=== PATIENT | male | born 1950 | race Caucasian/White ===

== ENCOUNTER 2016-07-12 20:37 | Observation (INO) ==
[2016-07-12] MEDS ORDERED: Ondansetron ODT 4 MG TAB.RAPDIS SL ONE (21:02)
--- NOTE | 2016-07-12 22:00 | Emergency Department Note ---
Disposition Clinical Impression: Vertigo Disposition: Admitted As Inpatient Condition: Good Dizziness HPI - General Chief Complaint: ED Nausea/Vomiting/Diarrhea Stated Complaint: n/v Time Seen by Provider: 07/12/16 21:01 Source: patient, family Mode of arrival: private vehicle Limitations: no limitations Nursing Notes Reviewed: Yes Vital Signs Reviewed: Yes - History of Present Illness HPI Narrative: 65-year-old male presents to the ER with a chief complaint of dizziness. Patient reports that this morning he did have an episode where for roughly 5 minutes the room was spinning around him. He states he closed his eyes and went away. He reports prior to arrival that he had recurrence of his symptoms and that the room was spinning around for a couple of hours before going away. Patient denies any previous history of vertigo. No recent head trauma. Does report history of strokes in the past. He reports he was nauseated and did have a few episodes of vomiting prior to arrival. His symptoms went away before he got here. He denies any chest pain shortness of breath visual changes headaches. No other complaints. 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 Denies: ataxia, chest pain, fever, shortness of breath, vision changes - Related Data Home Medications Medication Instructions Recorded Confirmed Fluticasone Propionate Nasal 50 mcg NS DAILY 07/12/16 07/12/16 [Flonase] Levothyroxine [Synthroid] 125 mcg PO QAM 07/12/16 07/12/16 Lisinopril/Hydrochlorothiazide 1 each PO BID 07/12/16 07/12/16 [Zestoretic 10-12.5 mg Tablet] Previous Rx's Medication Instructions Recorded Atorvastatin [Lipitor] 40 mg PO HS #30 tablet 07/13/16 Allergies Allergy/AdvReac Type Severity Reaction Status Date / Time Penicillins Allergy Abdominal Verified 07/12/16 20:38 Pain All systems ED: reviewed and negative except as stated. Constitutional: Denies: fever Cardiovascular: Denies: chest pain Respiratory: Denies: cough, dyspnea Gastrointestinal: Reports: nausea, vomiting. Denies: abdominal pain Neurological: Reports: vertigo. Denies: headache, numbness, paresthesias Past Medical History - Past Medical History Attestation: Yes The following information was validated with the patient. Source: patient Medical history: Reports: CVA, hypertension, thyroid disease Surgical history: Reports: non-contributory Psychiatric history: Reports: no psych history - Social History Smoking Status: Never smoker Smokeless Tobacco Status: No Alcohol use: Reports: none Drug use: Reports: none Physical Exam - General Limitations: no limitations General appearance: alert, in no apparent distress - Head Head exam: atraumatic, normocephalic, normal inspection - Eye Eye exam: Present: normal appearance, PERRL, EOMI - ENT ENT exam: normal exam - Neck Neck exam: Present: normal inspection, full ROM - Chest Chest inspection: Present: normal inspection, symmetric chest wall rise - Respiratory Respiratory exam: Present: normal lung sounds bilaterally - Cardiovascular Cardiovascular exam: Present: normal rhythm, tachycardia, normal heart sounds - Abdominal Exam Abdominal exam: Present: soft, Non-Tender. Absent: tenderness - Extremities Exam Extremities exam: Present: normal inspection, full ROM - Expanded Upper Extremity Exam Shoulder exam: Present: normal inspection, full ROM Arm exam: Present: normal inspection, full ROM Elbow exam: Present: normal inspection, full ROM Forearm/Wrist exam: Present: normal inspection, full ROM Hand exam: Present: normal inspection, full ROM - Expanded Lower Extremity Exam Hip/Pelvis exam: Present: normal inspection, full ROM Upper leg exam: Present: normal inspection, full ROM Knee exam: Present: normal inspection, full ROM Lower leg exam: Present: normal inspection, full ROM Ankle exam: Present: normal inspection, full ROM Foot/toe exam: Present: normal inspection, full ROM Neurovascular/Tendon exam: Absent: motor deficit, sensory deficit - Neurological Exam Neurological exam: Present: alert, oriented X3, CN II-XII intact. Absent: motor sensory deficit - Expanded Neurological Exam Patient oriented to: Present: person, place, time Speech: Present: fluid speech Cranial nerves: EOM function (II, III, IV, ): Normal, facial sensation (V): Normal, spinal accessory function (XI): Normal, tongue deviation (XII): Normal Cerebellar function: finger to nose: Normal Motor strength - LUE: 5/5 Motor strength - RUE: 5/5 Motor strength - LLE: 5/5 Motor strength - RLE: 5/5 Sensory exam upper extremity: light touch: Normal Sensory exam lower extremity: light touch: Normal Coma Scale Eye Opening: Spontaneous Coma Scale Motor Response: Obeys Commands Coma Scale Verbal Response: Oriented Coma Scale Total: 15 - Psychiatric Psychiatric exam: Present: normal affect, normal mood - Skin Skin exam: Present: warm, dry, intact, normal color Course Course Narrative: Patient seen and examined. Vital signs reviewed. We will get a CT scan of the head as well as an EKG and labs including troponin. Given meclizine and Zofran here. Disposition pending. - Reevaluation(s) Reevaluation #1: Discussed results of imaging and lab work with the patient. He is agreeable with coming into the hospital for further evaluation. Vital Signs Temperature 97.7 F 07/12/16 20:38 Pulse Rate 102 07/12/16 20:38 Respiratory Rate 20 07/12/16 20:38 Blood Pressure 168/99 07/12/16 20:38 O2 Sat by Pulse Oximetry 97 07/12/16 20:38 Temperature 98.2 F 07/13/16 15:13 Pulse Rate 87 07/13/16 15:13 Respiratory Rate 18 07/13/16 15:13 Blood Pressure 154/90 07/13/16 15:13 O2 Sat by Pulse Oximetry 91 07/13/16 15:13 Oxygen Delivery Oxygen Delivery Nasal Cannula Dizziness - MDM Narrative Medical decision making narrative: 65-year-old male presents to the ER with a chief complaint of vertigo. Symptoms had subsided prior to arrival. He does have a previous history of CVA but these were not his preceding symptoms. Patient's CT scan of the head shows no acute abnormality as per radiology read. He was hypertensive here. Concerned that he could have had a cerebellar ischemic event. Patient admitted to the hospitalist service for further evaluation. - Lab Data Lab results reviewed: Yes I reviewed the patient's lab results. Result diagrams: 07/13/16 05:12 07/13/16 05:12 Lab Results 07/12/16 07/12/16 07/12/16 Range/Units 21:45 21:45 21:45 WBC 13.6 H (4.3-11.1) K/mcL RBC 5.01 (4.19-5.50) M/mcL Hgb 15.4 (12.9-16.9) g/dL Hct 44.8 (37.5-50.1) % MCV 89.4 (83.0-100.0) fL MCH 30.7 (28.0-33.3) pg MCHC 34.4 (31.6-35.5) g/dL RDW 13.3 (11.5-14.5) % Plt Count 183 (140-400) K/mcL MPV 10.3 (9.4-12.4) fL Immature Gran % 0.6 (0-4) % Seg Neutrophils % 88.1 % Lymphocytes % 5.8 % Monocytes % 5.0 % Eosinophils % 0.1 % Basophils % 0.4 % Neutrophils # 12.0 H (1.6-8.9) K/mcL Lymphocytes # 0.8 (0.6-4.6) K/mcL Monocytes # 0.7 (0.0-1.3) K/mcL Eosinophils # 0.0 (0.0-0.6) K/mcL Basophils # 0.1 (0.0-0.2) K/mcL Sodium 139 (136-145) mEq/L Potassium 3.8 (3.5-4.5) mEq/L Chloride 99 (98-109) mEq/L Carbon Dioxide 27 (19-29) mEq/L BUN 21 (8-26) mg/dL Creatinine 1.29 H (0.72-1.25) mg/dL Est GFR ( Amer) > 60 (> 60) Est GFR (Non-Af Amer) 56 L (> 60) BUN/Creatinine Ratio 16 (6-26) Glucose 152 H (70-99) mg/dL Calculated Osmolality 294 (280-300) Calcium 10.5 (8.6-10.8) mg/dL Troponin I 0.01 (0-0.03) ng/mL - Radiology Data Radiology results reviewed: Yes I reviewed the patient's radiology results. Head CT 07/12/16 21:01 IMPRESSION: No acute intracranial abnormality. D/ / Néstor Velazquez MD / Néstor Velazquez MD Interpreting Provider: Néstor Velazquez MD - EKG Data EKG attestation: Yes I reviewed and interpreted this EKG. EKG results narrative: EKG demonstrates sinus tachycardia with a rate of 101. Normal axis. [place] interval 175 QRS duration [address] elevations or depressions. No acute ischemic findings. No significant changes from previous EKG dated . SDominic - Julio Situation: Demographics, MOA Background: Presenting Complaint, Relevant PMH, Meds, & Allergies Assessment: Vital Signs, Course and respsone to treatment, Exam Concerns, Patient/Family Expectation, Pertinant Lab Results, Outstanding Labs Recommendation: Barrier(s) to disposition, Recommendation based on pending studies, treatments, or consults S.B.Juancho Report Given to: Dr. Parish Kim Repor Time: 00:14 Attestation Statement - Attestation Attestation: I, Michael Gómez, examined this patient and my medical decision-making was reviewed with the SPECIALTY SALES CONSULTANT/PA/Advanced Practice Nurse/Resident Physician. I agree with the documented findings, disposition and treatment plan as described except to the extent set forth below. 65-year-old male presents with concerns of room spinning. Patient states symptoms started this morning and have been intermittent throughout the day. Patient states symptoms will last hours at a time and he is unable to ambulate during these events. He has a history of CVA in the past. Family did not notice focal neurologic deficits in concordance with the episodes of room spinning. Patient denies recent upper respiratory infection. Denies recent trauma or changes in his medications. CT of his head was negative for acute intracranial hemorrhage or fracture. Patient is comfortable with plan to admit to the hospital for further care and evaluation.
[2016-07-12 22:02] LABS: Basophils # 0.1 K/mcL (0.0-0.2); Basophils % 0.4 %; Eosinophils % 0.1 %; Hematocrit 44.8 % (37.5-50.1); Hemoglobin 15.4 g/dL (12.9-16.9); Immature Granulocytes % 0.6 % (0-4); Lymphocytes # 0.8 K/mcL (0.6-4.6); Lymphocytes % 5.8 %; Mean Corpuscular HGB Conc 34.4 g/dL (31.6-35.5); Mean Corpuscular Hemoglobin 30.7 pg (28.0-33.3); Mean Corpuscular Volume 89.4 fL (83.0-100.0); Mean Platelet Volume 10.3 fL (9.4-12.4); Monocytes # 0.7 K/mcL (0.0-1.3); Platelet Count 183 K/mcL (140-400); Red Blood Count 5.01 M/mcL (4.19-5.50); Red Cell Distribution Width 13.3 % (11.5-14.5); Segmented Neutrophils % 88.1 %
[2016-07-12] MEDS ORDERED: *HR* Metoprolol 5 MG/5 ML VIAL IVP ONE (22:02)
[2016-07-12 22:17] LABS: BUN/Creatinine Ratio 16 (6-26); Blood Urea Nitrogen 21 mg/dL (8-26); Calcium 10.5 mg/dL (8.6-10.8); Carbon Dioxide 27 mEq/L (19-29); Chloride 99 mEq/L (98-109); Glucose 152 mg/dL (70-99); Osmolality,Calculated 294 (280-300); Potassium 3.8 mEq/L (3.5-4.5); Sodium 139 mEq/L (136-145); eGFR For African Americans > 60 (> 60); eGFR For Non-African Americans 56 (> 60)
[2016-07-13] MEDS ORDERED: Acetaminophen 325 MG TABLET PO PRN (03:39)
[2016-07-13] MEDS ORDERED: Naloxone 0.4 MG/ML INJ IVP PRN (03:39)
[2016-07-13] MEDS ORDERED: Ondansetron 4 MG/2 ML VIAL IVP PRN (03:39)
[2016-07-13] MEDS ORDERED: *HR* Labetalol 20 MG/4 ML SYRINGE IVP PRN (03:44)
[2016-07-13] MEDS ORDERED: 0.9 % Sodium Chloride 1,000 ML IVC SCH (03:45)
--- NOTE | 2016-07-13 03:54 | Internal Med History&Physical ---
Date of Encounter: 07/13/16 Time of Encounter: 03:46 Assessment and Plan (1) Vertigo Current visit: Yes Status: Acute 1. It appears to have resolved. 2. Hold diuretics and hydrate gingerly for now. 3. Will use anti-emetics as needed and meclizine PRN. 4. Will MRI brain to rule out any intracranial pathology. (2) Murmur, cardiac Current visit: Yes Status: Acute 1. I suspect this is murmur on exam. 2. Will order ECHO to evaluate. 3. Hold JOSE due to concerns of As and risk of coronary steal syndrome. (3) Hypertension Current visit: Yes Status: Acute 1. Hold JOSE as above. 2. Will treat with PRN Labetolol. 3. Monitor and adjust as needed. Qualifiers: Hypertension type: essential hypertension Qualified Code(s): I10 - Essential (primary) hypertension (4) DVT prophylaxis Current visit: Yes Status: Acute 1. Heparin SQ. Internal Medicine - H&P: HPI Chief complaint: dizziness; vomiting; near syncope Admitted From: Emergency Dept History of present illness: Mr. Hendricks is a 65 year old male who presents with a one-day history of sudden onset of dizziness, nausea, vomiting, near syncope, and dehydration. He was reported to have some nystagmus with the above symptoms according to my discussions with the ER. Symptoms occurred several times throughout the day yesterday, but by the time he arrived at the ER, his symptoms resolved. He states he almost passed out twice from the dizzy spells and vomiting. He denies any chest pain, shortness of breath, palpitations, fevers, chills, or night sweats. He has never had vertigo before. He had an old stroke about 7 or 8 years ago with near full recovery. Presently at this time, he feels back to baseline and has no symptoms. He is able sit up and turn his head without any nausea, vomiting, or nystagmus. Earlier yesterday, any position change would exacerbate his vertigo symptoms. Workup in the ER was negative, but he did have mild leukocytosis and elevation of creatinine. We have no old records on him and he denies any kidney disease. Past Med Surg Social Fam HX - Past Medical History Attestation: Yes The following information was validated with the patient. Source: patient, old records reviewed Medical history: CVA, hypertension, thyroid disease Psychiatric history: no psych history - Past Surgical History Surgical History: no surgical history - Social History Smoking Status: Never smoker Smokeless Tobacco Status: No Alcohol use: none Drug use: none Current living situation: Home, With Family Activity Level: Independent ambulation, Very active Recent Out of Country Travel Within the Last 8 Weeks: No - Family History Brother Living Status: Hx Family Cardiac Disorders: Yes (Passed from massive [place]) Sister Hx Family Endocrine Disorder: Yes (DM) Internal Medicine - H&P: Meds Fluticasone Propionate Nasal [Flonase] 50 mcg NS DAILY 07/12/16 [History] Levothyroxine [Synthroid] 125 mcg PO QAM 07/12/16 [History] Lisinopril/Hydrochlorothiazide [Zestoretic 10-12.5 mg Tablet] 1 each PO BID 08/23 [History] Allergies Penicillins Allergy (Verified 07/12/16 20:38) Abdominal Pain - Constitutional Constitutional: no chills, no fever(s), no night sweats - EENT Eyes: no blurry vision, no change in vision, no diplopia, no photophobia Ears: no ear pain, no tinnitus Nose, mouth and throat: no nasal congestion, no nasal discharge, no post-nasal drip, no sinus pain, no sinus pressure, no sore throat - Cardiovascular Cardiovascular ROS IM: lightheadedness, palpitations, other (+ dizziness), no chest pain, no diaphoresis, no dyspnea, no dyspnea on exertion, no edema, no syncope - Respiratory Respiratory: no cough, no dyspnea, no hemoptysis, no dyspnea on exertion, no wheezing, no chest congestion - Gastrointestinal Gastrointestinal: no abdominal pain, no diarrhea, no heartburn, no hematemesis, no hematochezia, no melena, no nausea, no vomiting - Genitourinary Genitourinary ROS male: no dysuria, no flank pain, no hematuria - Musculoskeletal Musculoskeletal ROS IM: no arthralgias, no back pain, no neck pain - Integumentary Integumentary IM: no rash, no jaundice - Neurological Neurological ROS: dizziness, tremor(s) (chronic), vertigo, no focal weakness, no frequent falls, no headache(s), no tingling, no weakness - Psychiatric Psychiatric: no anxiety, no depression - Endocrine Endocrine IM: no polydipsia, no polyuria - Hematologic/Lymphatic Hematologic/Lymphatic: no easy bruising, no lymphadenopathy - Allergic/Immunologic Allergic/Immunologic: no wheezing, no GI upset with certain foods - Constitutional Vitals: Temp Pulse Resp BP Pulse Ox 98.3 F 87 16 183/103 93 07/13/16 01:11 07/13/16 01:11 07/13/16 01:11 07/13/16 01:11 07/13/16 02:02 General appearance: Present: cooperative, A&O X 3, pleasant, no acute distress - Head Head exam: Present: atraumatic, normal inspection - Expanded Head Exam Head exam expanded: Absent: abrasion, contusion, general tenderness - Eye Eye exam: Present: EOMI, normal appearance, PERRL, scleral icterus Pupils: Present: normal accommodation Additional comments: no appreciable nystagmus on exam - ENT ENT exam: Present: mucous membranes dry, normal exam, normal oropharynx - Neck Neck exam general surgery: Present: full ROM, supple. Absent: lymphadenopathy, tenderness, nuchal rigidity - Expanded Neck Exam Neck exam: Absent: carotid bruit - Respiratory Respiratory exam: Present: CTAB. Absent: rales, respiratory distress, rhonchi, wheezes - Cardiovascular Cardiovascular exam: Present: RRR, +S1, +S2, systolic murmur (suspicous for type murmur). Absent: irregular rhythm, JVD - GI/Abdominal GI/Abdominal exam: Present: normal bowel sounds, soft. Absent: hepatomegaly, mass, splenomegaly, tenderness - Extremities Exam Extremities exam: Present: full ROM, warm, radial pulses palpable and symetrical. Absent: calf tenderness, joint swelling - Back Exam Back exam: Present: normal inspection. Absent: CVA tenderness (L), CVA tenderness (R) - Neurological Exam Neurological exam: Present: alert, CN II-XII intact, oriented X3, no focal deficits Additional comments: intention tremor noted in both hands -- old/chronic no cerebellar dysfunction on finger to nose or heel to reed testing - Psychiatric Psychiatric exam: Present: normal affect, normal mood. Absent: anxious - Skin Skin exam: Present: dry, warm. Absent: rash Internal Med - H&P Results - Labs CBC & Chem 7: 07/12/16 21:45 07/12/16 21:45 - EKG Data -: EKG Interpreted by Myself EKG shows normal: sinus rhythm Rate: tachycardia - EKG Data Prior EKG available for review: no EKG comments: 07/13/16 04:02 Sinus rhythm with LVH criteria - Diagnostic Studies CT scan - head Additional comments: report reviewed -- negative
[2016-07-13 05:50] LABS: Basophils % 0.5 %; Eosinophils # 0.1 K/mcL (0.0-0.6); Eosinophils % 0.7 %; Hematocrit 40.9 % (37.5-50.1); Hemoglobin 13.9 g/dL (12.9-16.9); Immature Granulocytes % 0.5 % (0-4); Lymphocytes % 22.6 %; Mean Corpuscular Hemoglobin 30.5 pg (28.0-33.3); Mean Corpuscular Volume 89.9 fL (83.0-100.0); Mean Platelet Volume 10.4 fL (9.4-12.4); Monocytes # 0.9 K/mcL (0.0-1.3); Monocytes % 9.9 %; Neutrophils # 5.8 K/mcL (1.6-8.9); Platelet Count 167 K/mcL (140-400); Red Blood Count 4.55 M/mcL (4.19-5.50); Red Cell Distribution Width 13.3 % (11.5-14.5); Segmented Neutrophils % 65.8 %
[2016-07-13 05:56] LABS: Alanine Aminotransferase 28 Units/L (0-55); Alkaline Phosphatase 60 Units/L (38-126); Aspartate Amino Transferase 29 Units/L (5-34); BUN/Creatinine Ratio 17 (6-26); Bilirubin,Total 0.5 mg/dL (0.2-1.2); Blood Urea Nitrogen 20 mg/dL (8-26); Carbon Dioxide 22 mEq/L (19-29); Chloride 101 mEq/L (98-109); Chol/HDL Ratio 8.1 (0-4.9); Cholesterol 220 mg/dL (< 200); Globulin 4.2 g/dL (2.4-3.5); Glucose 162 mg/dL (70-99); HDL Cholesterol 27 mg/dL (40-59); Magnesium 2.1 mg/dL (1.6-2.6); Osmolality,Calculated 292 (280-300); Potassium 3.5 mEq/L (3.5-4.5); Sodium 138 mEq/L (136-145); Total Protein 8.2 g/dL (6.0-8.3); Triglycerides 463 mg/dL (< 150); eGFR For African Americans > 60 (> 60); eGFR For Non-African Americans > 60 (> 60)
[2016-07-13] MEDS ORDERED: *HR* Heparin 5,000 UNIT/ML VIAL SQ SCH (06:00)
[2016-07-13 06:16] LABS: Thyroid Stimulating Hormone 2.602 mcIU/mL (0.350-4.840)
[2016-07-13] MEDS ORDERED: Fluticasone Propionate Nasal 50 MCG/SPRAY BOTTLE NS SCH (09:00)
[2016-07-13] MEDS ORDERED: Perflutren Lipid Microsphere 1.3 ML in 0.9 % Sodium Chloride 8.7 ML IVP ONE (10:51)
--- NOTE | 2016-07-13 13:34 | Electrocardiograph Report ---
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
--- NOTE | 2016-07-13 14:56 | ECHO - Doppler Report ---
Echo with Imaging Enhancement Agent Name: Yves Hendricks Date of Study: 07/13/2016 Date: 1950 Ht: 66.0 in Medical Record#: [id number] Age: 65 Wt: 204.0 lb Gender: Male BSA: 2.02 Order #: [id number] Location: [facility] Room #: 3B39 Reading Physician: Lucina Anand DO Inspector Rubber Stamp Die: April Zamudio RVT Ordering Physician: Gomez Lugo MD Primary Physician: Frances Navarrete CNP Indications: NEAR SYNCOPE Impressions: LVEF 70%. Normal left ventricular size and systolic function. Mild concentric hypertrophy of the left ventricle. There is evidence of mild diastolic dysfunction of the left ventricle. Dynamic LVOT spectral Doppler without significant gradient. RV is not well evaluated on this study. No significant valvular dysfunction. No pulmonary hypertension. Left Ventricular Wall Motion: Rest Echo Findings All wall segments showed normal motion. Findings: Study Quality * Technically challenging windows. ECG Findings * Normal sinus rhythm. Left Ventricle * Mild concentric left ventricular hypertrophy. * Mild left ventricular diastolic dysfunction. * Dynamic LVOT Doppler without significant gradient. * LVEF 70%. Definity was used. Left Atrium * Normal left atrial size. Aortic Valve * No aortic regurgitation. * Aortic valve not well visualized. * No aortic stenosis. Mitral Valve * No mitral regurgitation. * No mitral stenosis. * Normal mitral valve structure. Tricuspid Valve * Tricuspid valve not well visualized. * No tricuspid regurgitation. Pulmonic Valve * Pulmonic valve is not well visualized. * No pulmonic stenosis. * No pulmonic regurgitation. Pulmonary Artery * Pulmonary artery not well visualized. Right Atrium * Normal right atrial size. Interatrial Septum * Interatrial septum not well evaluated. IVC * The IVC is not well evaluated. Pericardium * There is no pericardial effusion present. Aorta * Not well visualized. Right Ventricle * Suboptimally visualized and evaluated. History Hypertension Family History of CAD Contrast: Definity 1.3 ml in 8.7 ml of saline 2 ml. Measurements: BP: 171/ 99 2D Normal Values IVSd: 1.30 cm 0.6 - 1.0 cm LVIDd: 3.30 cm 3.7 - 5.6 cm LVPWd: 1.30 cm 0.6 - 1.1 cm LVIDs: 2.10 cm 1.5 - 3.6 cm AO: 3.30 cm < 4.0 cm LA: 4.80 cm 2.0 - 4.0cm %FS: 36.40 cm >25 % LVOT Diam: 2.20 cm LA volume: 55 Mitral Valve Dec Time:303.00 msec Peak E:.72 m/sec Peak A:.86 m/sec E/A Ratio:0.8 E/E' Lat Ratio:8.9 E/E' Med Ratio:27.2 LVOT Peak Phillip:1.20 m/sec Mean Phillip:.85 m/sec Peak Grad:6.00 mmHg Mean Grad:3.00 mmHg Aortic Valve Peak Phillip:2.70 m/sec Mean Phillip:1.79 m/sec Peak Grad:29.00 mmHg Mean Grad:15.00 mmHg Valve Area:1.98 cm2 Updated by Lucina Anand on 07/13/2016 2:45:06 PM electronically signed on 07/13/2016 2:50:12 PM with status of Final Wall Motion [place]: 1=Normal, 2=Hypokinesis, 3=Akinesis, 4=Dyskinesis, 5=Aneurysmal, 6=Hyperkinetic, X=Not Visualized (Blank)=Missing
[2016-07-13 15:17] VITALS: BP 154/90
--- NOTE | 2016-07-13 18:19 | Discharge Summary ---
Date of Encounter: 07/13/16 Time of Encounter: 17:00 - Discharge Diagnosis (1) Vertigo Priority: Primary Status: Resolved Comments: Patient was asymptomatic throughout this admission. He denied dizziness. He was able to tolerate a regular diet. CVA workup negative. Carotid stenosis noted, follow-up outpatient with vascular. Likely due to dehydration, acute kidney injury resolved with IV fluids. (2) Carotid stenosis, bilateral Priority: Primary Status: Acute Comments: Carotid ultrasound revealing bilateral stenosis 60-79%. Recommend follow-up outpatient with vascular (3) Left ventricular outflow tract obstruction Priority: Primary Status: Acute Comments: Incidental finding on echocardiogram of dynamic LVOT without significant gradient. Spoke to cardiology, cleared for outpatient follow-up. (4) DOUGIE (acute kidney injury) Priority: Primary Status: Resolved (5) HLD (hyperlipidemia) Priority: Primary Status: Acute Comments: Patient does not appear to have a history of hyperlipidemia and he is not on cholesterol medication at home. Triglycerides 463, total cholesterol 220. We will initiate a statin. HDL 27. (6) Murmur, cardiac Priority: Primary Status: Ruled-out Comments: LVOT without significant gradient. Follow-up outpatient with cardiology. No evidence of aortic stenosis. (7) Hypertension Priority: Secondary Status: Chronic Comments: No evidence of aortic stenosis on echocardiogram, safe to resume his lisinopril. Recommend daily blood pressure checks at home, keeping a log, and following up outpatient. Qualifiers: Hypertension type: essential hypertension Qualified Code(s): I10 - Essential (primary) hypertension (8) DVT prophylaxis Priority: Primary Status: Acute Comments: Subcutaneous heparin while admitted (9) Leukocytosis Priority: Primary Status: Resolved Comments: Likely stress related. Resolved. No signs of acute infection during this admission. (10) Hypothyroidism Priority: Secondary Status: Chronic Comments: TSH normal, continue current dose of levothyroxine - Discharge Medications Prescriptions: Atorvastatin [Lipitor] 40 mg PO HS #30 tablet Home Medications: Fluticasone Propionate Nasal [Flonase] 50 mcg NS DAILY 07/12/16 [History] Levothyroxine [Synthroid] 125 mcg PO QAM 07/12/16 [History] Lisinopril/Hydrochlorothiazide [Zestoretic 10-12.5 mg Tablet] 1 each PO BID 08/23 [History] Atorvastatin [Lipitor] 40 mg PO HS #30 tablet 07/13/16 [Rx] Allergies/Adverse Reactions: Allergies Penicillins Allergy (Verified 07/12/16 20:38) Abdominal Pain Procedures/tests Complete & Pending: Procedures Performed prior 72 hours Category Date Time Status MR head/brain wo con [MR] Routine MRI 07/13/16 03:39 Completed ECG 12 lead ECG [ECG] AM 0600 Y 07/13/16 06:00 Ordered EV carotid duplex imaging BI Routine Y 07/13/16 03:39 Completed EV echocardiogram w enhance Routine Y 07/13/16 03:39 Completed Date of admission: 07/13/16 00:25 Primary care physician: PCP NO Discharging clinician: Mimi Sanderson Anticipated date of discharge: 07/13/16 - Patient Status Disposition: Home, Self-Care Condition: Good Functional capacity at discharge: independent ambulation Overall status at discharge: patient is back to baseline - Discharge Instructions Follow Up With: [facility] [Provider Group] Card[facility] [Provider Group] Frances Navarrete, INSTALLATION TECH [Advanced Practice Nurse] - Additional Instructions: Follow-up with your primary care provider within 1-2 weeks. Follow-up with cardiology and vascular surgery in 2-3 weeks - Diet and Activity Activity: increase activity as tolerated Diet: low fat, low cholesterol, low salt diet Hospital course: Mr. Hendricks is a 65 year old male with past medical history of hypertension, prior CVA, hypothyroidism, non-/never smoker. Patient presented to the emergency department chief complaint one day history of sudden onset of dizziness, nausea, vomiting, near syncope, and dehydration. He reported patient with nystagmus upon presentation. Patient stated his symptoms occurred several times throughout the day prompting his presentation to the emergency department. His symptoms had resolved prior to presentation however. Patient stated he almost passed out twice from the dizzy spells and the vomiting but did not lose consciousness. He denied any chest pain, shortness of breath, palpitations, fever, chills, or night sweats. Patient stating he had never had vertigo before. Patient stating he had a stroke 7-8 years ago with nearly full recovery. Workup in the emergency department unremarkable except for mild leukocytosis and mild acute kidney injury. Patient was admitted to the hospitalist service for further evaluation and management. Head CT negative. Brain MRI negative for acute processes. Patient continued to be asymptomatic throughout this admission and he tolerated a regular diet. A heart murmur was noted on examination and there was concern for possible aortic stenosis of his lisinopril was held during this admission he was given IV antihypertensives. Echocardiogram revealing ejection fraction of 70% with mild diastolic dysfunction with no evidence of aortic stenosis. Incidental finding of dynamic LVOT without significant gradient was noted, spoke to cardiology who cleared him for outpatient follow-up. His acute kidney injury resolved. He was instructed to resume his antihypertensive medications at home and check his blood pressure daily. His lipid profile was abnormal with triglyceride count of 463 and total cholesterol 220 with LDL and VLDL unable to be calculated. HDL 27 as well. He was started on moderate dose statin. His carotid ultrasound was also notable for 60-79% stenosis bilaterally. He was instructed to follow up closely outpatient with vascular surgery as well. He was discharged home in stable condition with close outpatient follow-up recommended with cardiology, vascular surgery, and primary care provider. He was also educated on low-cholesterol and low-fat dieting. ITS Impressions Head CT 07/12/16 21:01 IMPRESSION: No acute intracranial abnormality. D/ / Néstor Velazquez MD / Néstor Velazquez MD Interpreting Provider: Néstor Velazquez MD Brain MRI 07/13/16 03:39 IMPRESSION: 1. No acute intracranial abnormality. No acute infarct. 2. Global parenchymal volume loss with moderate chronic microvascular ischemic change. This has progressed from the prior exam. 3. Chronic lacunar infarct within the left caudate head as well as the right elyse. D/ / Martin Cleveland MD / Martin Cleveland MD Interpreting Provider: Martin Cleveland MD Echo with imaging enhancement agent impressions: LVEF 70%. Normal left ventricular size and systolic function. Mild concentric hypertrophy of the left ventricle. There is evidence of mild diastolic dysfunction of the left ventricle. Dynamic LVOT spectral Doppler without significant gradient. RV is not well evaluated on this study. No significant valvular dysfunction. No pulmonary hypertension. No aortic stenosis. No mitral stenosis. - Time Spent with Patient Total time spent providing and/or coordinating discharge services: - Constitutional Vitals: Temp Pulse Resp BP Pulse Ox 98.2 F 87 18 154/90 91 07/13/16 15:13 07/13/16 15:13 07/13/16 15:13 07/13/16 15:13 07/13/16 15:13 General appearance: Present: cooperative, A&O X 3, pleasant, no acute distress, answers questions appropriately - Head Head exam: Present: atraumatic, normocephalic - Eye Eye exam: Present: PERRL, conjuntiva pink, sclera anicteric Pupils: Present: PERRL - Neck Neck exam general surgery: Present: supple, trachea midline. Absent: lymphadenopathy - Respiratory Respiratory exam: Present: CTAB. Absent: accessory muscle use, rales, respiratory distress, rhonchi, wheezes - Cardiovascular Cardiovascular exam: Present: RRR, +S1, +S2. Absent: diastolic murmur, gallop, rubs, systolic murmur - GI/Abdominal GI/Abdominal exam: Present: normal bowel sounds, soft, no peritoneal signs. Absent: distended, tenderness - Extremities Exam Extremities exam: Present: warm, radial pulses palpable and symetrical. Absent : calf tenderness, cyanotic, pedal edema - Neurological Exam Neurological exam: Present: alert, CN II-XII intact, normal gait, oriented X3, no focal deficits, strengths equal and symetr throughout. Absent: pronater drift, facial droop, speech deficit - Skin Skin exam: Present: dry, intact, normal color, warm
--- NOTE | 2016-07-14 14:45 | Carotid Imaging Report ---
Carotid Duplex Patient Name:Yves Hendricks Order Number:[id number] Procedure Date:07/13/2016 Date:1950Age:65 yrs Gender:Male Lt BP:166 / 90 mmHg Rt.BP:170 / 92 mmHgHeart Rate: Location:[facility] Room #: 3B39 Rn Flight:April Zamudio, RVT Referring MD:Gomez Lugo MD hole digger operator:Frances Navarrete, PATENTS EXAMINER Reading MD:Jose Ordaz MD , FACS Primary Indications:NEAR SYNCOPE Impressions: Findings: Right proximal ICA has a severe, 60-79% stenosis. Findings: Left bifurcation has a severe, 60-79% stenosis. Recommendations: After imaging the patient returned to their room. Test completed on 07/13/2016 at 10:30:00 am. Findings Carotid Duplex: Right: The right proximal common carotid artery has a PSV of 73 cm/s and a EDV of 17 cm/s. The right mid common carotid artery has a PSV of 86 cm/s and a EDV of 21 cm/s. The right distal common carotid artery has a PSV of 76 cm/s and a EDV of 18 cm/s. The right bifurcation has a PSV of 75 cm/s and a EDV of 20 cm/s. There is irregular calcified plaque. There is 60-79% stenosis in the right proximal internal carotid artery with a PSV of 157 cm/s and a EDV of 57 cm/s. There is irregular calcified plaque. The right mid internal carotid artery has a PSV of 85 cm/s and a EDV of 23 cm/s. The right distal internal carotid artery has a PSV of 51 cm/s and a EDV of 17 cm/s. The right eca has a PSV of 180 cm/s and a EDV of 31 cm/s. The right vertebral artery has a PSV of 52 cm/s and a EDV of 15 cm/s. Left: The left proximal common carotid artery has a PSV of 79 cm/s and a EDV of 15 cm/s. The left mid common carotid artery has a PSV of 81 cm/s and a EDV of 17 cm/s. The left distal common carotid artery has a PSV of 55 cm/s and a EDV of 13 cm/s. There is smooth plaque with intimal thickening. There is 60-79% stenosis in the left bifurcation with a PSV of 171 cm/s and a EDV of 50 cm/s. There is irregular heterogeneous plaque. The left proximal internal carotid artery has a PSV of 92 cm/s and a EDV of 32 cm/s. There is calcified plaque. The left mid internal carotid artery has a PSV of 58 cm/s and a EDV of 25 cm/s. The left distal internal carotid artery has a PSV of 43 cm/s and a EDV of 16 cm/s. The left eca has a PSV of 163 cm/s and a EDV of 21 cm/s. The left vertebral artery has a PSV of 60 cm/s and a EDV of 20 cm/s. Prior Study: No prior study available for comparison. Carotid Results Right PSV EDV Assessment Proximal CCA 73 17 Mid CCA 86 21 Distal CCA 76 18 Bifurcation 75 20 Proximal ICA 157 57 Mid ICA 85 23 Distal ICA 51 17 ECA 180 31 Vertebral Artery 52 15 Left PSV EDV Assessment Proximal CCA 79 15 Mid CCA 81 17 Distal CCA 55 13 Bifurcation 171 50 Proximal ICA 92 32 Mid ICA 58 25 Distal ICA 43 16 ECA 163 21 Vertebral Artery 60 20 Ratio's Right ICA/CCA Ratio: 1.82 ICA/CCA Values: 157/86 Left ICA/CCA Ratio: 1.13 ICA/CCA Values: 92/81 Updated by Jose Ordaz MD, FACS on 07/14/2016 2:39:38 PM Jose Ordaz MD electronically signed on 07/14/2016 2:40:35 PM with status of Final
== END 2016-07-13 19:00 | disposition home or self-care (01) ==
LOC: EMEROO 20:37 → 3BNU 20:37
PROVIDERS: ADMIT Nurse Practitioner Family; ATTEND Nurse Practitioner Family

== ENCOUNTER 2021-04-17 17:28 | Inpatient (IN) ==
[2021-04-17 18:26] LABS: Basophils % 0.5 %; Eosinophils # 0.1 K/mcL (0.0-0.6); Hematocrit 37.7 % (37.5-50.1); Hemoglobin 12.5 g/dL (12.9-16.9); Immature Granulocytes % 0.3 % (0-4); Lymphocytes # 1.1 K/mcL (0.6-4.6); Mean Corpuscular HGB Conc 33.2 g/dL (31.6-35.5); Mean Corpuscular Hemoglobin 30.2 pg (28.0-33.3); Mean Corpuscular Volume 91.1 fL (83.0-100.0); Mean Platelet Volume 10.2 fL (9.4-12.4); Monocytes # 0.8 K/mcL (0.0-1.3); Monocytes % 8.7 %; Neutrophils # 6.9 K/mcL (1.6-8.9); Platelet Count 168 K/mcL (140-400); Red Blood Count 4.14 M/mcL (4.19-5.50); Red Cell Distribution Width 13.8 % (11.5-14.5); Segmented Neutrophils % 77.5 %; White Blood Count 8.9 K/mcL (4.3-11.1)
[2021-04-17 18:33] LABS: INR 1.1; Prothrombin Time 12.6 Seconds (9.4-12.1)
[2021-04-17 18:36] LABS: Activated Partial Thrombo Time 31.8 Seconds (26.0-36.0)
[2021-04-17] MEDS ORDERED: Isovue-370 500 ML BOTTLE IVP ONE (18:41)
[2021-04-17 18:57] LABS: Calcium 9.3 mg/dL (8.6-10.3)
[2021-04-17 18:58] LABS: Troponin I 0.42 ng/mL (< 0.04)
[2021-04-17 19:10] LABS: Influenza A PCR Negative (Negative); Influenza B PCR Negative (Negative); Resp. Syncytial Virus PCR Negative (Negative)
[2021-04-17 19:12] LABS: SARS-CoV-2 by PCR (In House) Negative (Negative)
[2021-04-17] MEDS ORDERED: *HR* Heparin 5,000 UNIT/ML VIAL IVP PRN (21:03)
[2021-04-17] MEDS ORDERED: *HR* Heparin 5,000 UNIT/ML VIAL IVP ONE (21:03)
[2021-04-17] MEDS ORDERED: Furosemide 40 MG/4 ML VIAL IVP ONE (21:03)
[2021-04-17] MEDS ORDERED: Morphine Sulfate 2 MG/ML SYRINGE IVP ONE (21:13)
[2021-04-17] MEDS: Heparin 25,000UNIT/250ML 1/2NS 25,000 UNIT/250 ML IV.SOLN IVC SCH (21:49)
[2021-04-17 22:15] LABS: Adenovirus Not Detected (Not Detect); Coronavirus 229E Not Detected (Not Detect); Coronavirus HKU1 Not Detected (Not Detect); Coronavirus NL63 Not Detected (Not Detect); Coronavirus OC43 Not Detected (Not Detect); Human Metapneumovirus Not Detected (Not Detect); Human Rhinovirus/Enterovirus Not Detected (Not Detect); Influenza A Subtype 2009 H1 Not Detected (Not Detect); SARS-CoV-2 Not Detected (Not Detect)
[2021-04-17 22:16] LABS: Bordetella Pertussis Not Detected (Not Detect); Chlamydophila pneumoniae Not Detected (Not Detect); Influenza B Not Detected (Not Detect); Mycoplasma pneumoniae Not Detected (Not Detect); Parainfluenza Virus 1 Not Detected (Not Detect); Parainfluenza Virus 2 Not Detected (Not Detect); Parainfluenza Virus 3 Not Detected (Not Detect); Parainfluenza Virus 4 Not Detected (Not Detect); Respiratory Syncytial Virus Not Detected (Not Detect)
[2021-04-17] MEDS ORDERED: Melatonin 3 MG TABLET PO PRN (23:23)
[2021-04-17] MEDS ORDERED: Ondansetron 4 MG/2 ML VIAL IVP PRN (23:23)
[2021-04-17] MEDS ORDERED: Naloxone 0.4 MG/ML INJ IVP PRN (23:23)
[2021-04-18 04:59] LABS: Basophils % 0.4 %; Eosinophils # 0.1 K/mcL (0.0-0.6); Eosinophils % 0.9 %; Hematocrit 39.6 % (37.5-50.1); Hemoglobin 13.1 g/dL (12.9-16.9); Immature Granulocytes % 0.4 % (0-4); Lymphocytes # 1.8 K/mcL (0.6-4.6); Lymphocytes % 19.8 %; Mean Corpuscular HGB Conc 33.1 g/dL (31.6-35.5); Mean Corpuscular Volume 90.6 fL (83.0-100.0); Mean Platelet Volume 10.1 fL (9.4-12.4); Monocytes # 1.1 K/mcL (0.0-1.3); Monocytes % 11.9 %; Neutrophils # 5.9 K/mcL (1.6-8.9); Platelet Count 182 K/mcL (140-400); Red Blood Count 4.37 M/mcL (4.19-5.50); Segmented Neutrophils % 66.6 %; White Blood Count 8.9 K/mcL (4.3-11.1)
[2021-04-18 05:23] LABS: Alanine Aminotransferase 10 Units/L (7-52); Albumin 4.6 g/dL (3.5-5.7); Albumin/Globulin Ratio 1.3 (1.1-2.2); Alkaline Phosphatase 70 Units/L (34-104); Aspartate Amino Transferase 19 Units/L (13-39); BUN/Creatinine Ratio 18 (6-26); Bilirubin,Total 0.5 mg/dL (0.3-1.0); Blood Urea Nitrogen 24 mg/dL (8-23); Calcium 9.6 mg/dL (8.6-10.3); Carbon Dioxide 23 mEq/L (23-29); Chloride 99 mEq/L (98-107); Globulin 3.5 g/dL (2.4-3.5); Glucose 138 mg/dL (70-105); Magnesium 1.8 mg/dL (1.6-2.6); Osmolality,Calculated 286 (280-300); Phosphorous 2.6 mg/dL (2.7-4.5); Potassium 3.7 mEq/L (3.5-5.1); Sodium 135 mEq/L (136-145); Total Protein 8.1 g/dL (6.4-8.9); eGFR For African Americans > 60 (> 60); eGFR For Non-African Americans 53 (> 60)
[2021-04-18] MEDS: *HR* Heparin 5,000 UNIT/ML VIAL IVP PRN ×2 (07:28→21:27)
[2021-04-18] MEDS ORDERED: Perflutren Lipid Microsphere 1.3 ML in 0.9 % Sodium Chloride 8.7 ML IVP PRN (09:05)
[2021-04-18] MEDS ORDERED: *HR* Midazolam HCl 2 MG/2 ML VIAL ONE (12:18)
[2021-04-18] MEDS ORDERED: *HR* FentaNYL (PF) 100 MCG/2 ML VIAL ONE (12:18)
[2021-04-18] MEDS ORDERED: *HR* Heparin 10,000 UNIT/10 ML VIAL ONE (12:19)
[2021-04-18] MEDS ORDERED: 0.9 % Sodium Chloride 2,000 ML ONE (12:19)
[2021-04-18] MEDS ORDERED: Heparin 1,000 UNITS/500 mL 500 ML ONE (12:19)
[2021-04-18] MEDS ORDERED: ISOVUE-370 200 ML INFUS..BTL ONE ×2 (12:19→13:21)
[2021-04-18] MEDS ORDERED: Nitroglycerin 1,000 MCG/5 ML VIAL IV ONE (12:19)
[2021-04-18] MEDS ORDERED: Adenosine 90 MG/30 ML MLS IV ONE (13:02)
[2021-04-18] MEDS: Carbidopa/Levodopa 25/100 TABLET PO SCH ×2 (16:50→21:24)
[2021-04-18] MEDS: Aspirin 81 MG TAB.CHEW PO SCH (16:50)
[2021-04-18] MEDS: Insulin LISPRO 300 UNITS/3 ML VIAL SUBQ SCH ×2 (17:59→21:43)
[2021-04-18] MEDS: carvediloL 6.25 MG TABLET PO SCH (21:40)
[2021-04-19] MEDS: Heparin 25,000UNIT/250ML 1/2NS 25,000 UNIT/250 ML IV.SOLN IVC SCH ×2 (01:20→21:02)
[2021-04-19 05:25] LABS: Basophils % 0.6 %; Eosinophils # 0.2 K/mcL (0.0-0.6); Eosinophils % 2.1 %; Hematocrit 39.8 % (37.5-50.1); Hemoglobin 13.3 g/dL (12.9-16.9); Immature Granulocytes % 0.4 % (0-4); Lymphocytes # 1.6 K/mcL (0.6-4.6); Lymphocytes % 22.7 %; Mean Corpuscular HGB Conc 33.4 g/dL (31.6-35.5); Mean Corpuscular Hemoglobin 30.9 pg (28.0-33.3); Mean Corpuscular Volume 92.3 fL (83.0-100.0); Mean Platelet Volume 10.4 fL (9.4-12.4); Monocytes # 0.9 K/mcL (0.0-1.3); Monocytes % 12.6 %; Neutrophils # 4.4 K/mcL (1.6-8.9); Platelet Count 186 K/mcL (140-400); Red Blood Count 4.31 M/mcL (4.19-5.50); Red Cell Distribution Width 14.3 % (11.5-14.5); Segmented Neutrophils % 61.6 %; White Blood Count 7.2 K/mcL (4.3-11.1)
[2021-04-19 05:43] LABS: BUN/Creatinine Ratio 22 (6-26); Blood Urea Nitrogen 24 mg/dL (8-23); Calcium 9.8 mg/dL (8.6-10.3); Carbon Dioxide 24 mEq/L (23-29); Chloride 100 mEq/L (98-107); Glucose 140 mg/dL (70-105); Osmolality,Calculated 286 (280-300); Potassium 3.7 mEq/L (3.5-5.1); Sodium 135 mEq/L (136-145); eGFR For African Americans > 60 (> 60); eGFR For Non-African Americans > 60 (> 60)
[2021-04-19] MEDS: Insulin LISPRO 300 UNITS/3 ML VIAL SUBQ SCH ×4 (09:48→21:13)
[2021-04-19] MEDS: Carbidopa/Levodopa 25/100 TABLET PO SCH ×3 (11:28→21:21)
[2021-04-19] MEDS: Aspirin 81 MG TAB.CHEW PO SCH (11:28)
[2021-04-19] MEDS: carvediloL 6.25 MG TABLET PO SCH ×2 (11:28→17:07)
[2021-04-19] MEDS: Ranolazine 500 MG TAB.ER.12H PO SCH ×2 (11:28→21:21)
[2021-04-19] MEDS: Isosorbide MONOnitrate (24 HR) 30 MG TAB.ER.24H PO SCH (11:28)
[2021-04-19] MEDS: Lisinopril-HCTZ 20-12.5mg TABLET PO SCH (11:28)
[2021-04-19] MEDS: *HR* Heparin 5,000 UNIT/ML VIAL IVP PRN ×2 (13:17→21:03)
[2021-04-19 16:19] LABS: Chol/HDL Ratio 8.6 (0-4.9); Cholesterol 224 mg/dL (< 200); HDL Cholesterol 26 mg/dL (40-59); Triglycerides 724 mg/dL (< 150)
[2021-04-19 21:00] LABS: ABG Base Excess 0 mEq/L (-2 to 3); ABG HCO3 24 mEq/L (21-27); ABG Oxygen Saturation 95 % (95-98); ABG PCO2 38 mmHg (35-45); ABG PH 7.41 pH Units (7.32-7.45); ABG PO2 76 mmHg (85-104); ABG TCO2 25 mEq/L (20-26)
[2021-04-20 03:31] LABS: Basophils % 0.5 %; Eosinophils # 0.1 K/mcL (0.0-0.6); Eosinophils % 1.8 %; Hematocrit 36.4 % (37.5-50.1); Hemoglobin 12.2 g/dL (12.9-16.9); Immature Granulocytes % 0.4 % (0-4); Lymphocytes # 2.1 K/mcL (0.6-4.6); Mean Corpuscular HGB Conc 33.5 g/dL (31.6-35.5); Mean Corpuscular Hemoglobin 30.4 pg (28.0-33.3); Mean Corpuscular Volume 90.8 fL (83.0-100.0); Mean Platelet Volume 10.2 fL (9.4-12.4); Monocytes # 1.2 K/mcL (0.0-1.3); Monocytes % 15.1 %; Neutrophils # 4.4 K/mcL (1.6-8.9); Platelet Count 187 K/mcL (140-400); Red Blood Count 4.01 M/mcL (4.19-5.50); Red Cell Distribution Width 14.4 % (11.5-14.5); Segmented Neutrophils % 55.2 %; White Blood Count 7.9 K/mcL (4.3-11.1)
[2021-04-20 03:50] LABS: Calcium 9.2 mg/dL (8.6-10.3); Potassium 3.6 mEq/L (3.5-5.1)
[2021-04-20] MEDS: Insulin LISPRO 300 UNITS/3 ML VIAL SUBQ SCH ×4 (08:35→21:41)
[2021-04-20] MEDS: carvediloL 6.25 MG TABLET PO SCH ×2 (08:56→16:06)
[2021-04-20] MEDS: Lisinopril-HCTZ 20-12.5mg TABLET PO SCH (08:56)
[2021-04-20] MEDS: Chlorhexidine Rinse 15 ML MOUTHWASH MM SCH ×2 (08:56→21:49)
[2021-04-20] MEDS: Isosorbide MONOnitrate (24 HR) 30 MG TAB.ER.24H PO SCH (08:56)
[2021-04-20] MEDS: Carbidopa/Levodopa 25/100 TABLET PO SCH ×3 (08:57→21:49)
[2021-04-20] MEDS: Ranolazine 500 MG TAB.ER.12H PO SCH ×2 (08:57→21:49)
[2021-04-20] MEDS: Aspirin 81 MG TAB.CHEW PO SCH (08:57)
[2021-04-20 10:23] LABS: Calcium 9.6 mg/dL (8.6-10.3); Potassium 3.7 mEq/L (3.5-5.1)
[2021-04-20] MEDS ORDERED: 0.9 % Sodium Chloride 1,000 ML IVC SCH (10:30)
[2021-04-20] MEDS: Heparin 25,000UNIT/250ML 1/2NS 25,000 UNIT/250 ML IV.SOLN IVC SCH (13:12)
[2021-04-20 15:35] LABS: Estimated Average Glucose 137 mg/dl; Hemoglobin A1C 6.4 %
[2021-04-20 18:12] LABS: Bilirubin,Urine Negative (Negative); Blood,Urine Negative (Negative); Clarity,Urine Clear (Clear); Color,Urine Yellow (Yellow); Glucose,Urine (UA) Normal (Normal); Ketones,Urine Negative (Negative); Leukocyte Esterase,Urine Negative (Negative); Nitrite,Urine Negative (Negative); PH,Urine 5.5 pH Units (5.0-8.0); Protein,Urine Trace mg/dL (Neg-Trace); Specific Gravity,Urine 1.024 (1.010-1.025); Urobilinogen,Urine Normal (Normal)
[2021-04-21 04:44] LABS: Basophils % 0.3 %; Eosinophils # 0.1 K/mcL (0.0-0.6); Eosinophils % 1.8 %; Hematocrit 32.9 % (37.5-50.1); Hemoglobin 10.9 g/dL (12.9-16.9); Immature Granulocytes % 0.3 % (0-4); Lymphocytes # 1.7 K/mcL (0.6-4.6); Lymphocytes % 26.7 %; Mean Corpuscular HGB Conc 33.1 g/dL (31.6-35.5); Mean Corpuscular Hemoglobin 30.6 pg (28.0-33.3); Mean Corpuscular Volume 92.4 fL (83.0-100.0); Mean Platelet Volume 10.3 fL (9.4-12.4); Monocytes # 0.8 K/mcL (0.0-1.3); Monocytes % 12.5 %; Neutrophils # 3.7 K/mcL (1.6-8.9); Platelet Count 155 K/mcL (140-400); Red Blood Count 3.56 M/mcL (4.19-5.50); Red Cell Distribution Width 14.2 % (11.5-14.5); Segmented Neutrophils % 58.4 %; White Blood Count 6.3 K/mcL (4.3-11.1)
[2021-04-21 04:50] LABS: INR 1.1; Prothrombin Time 12.7 Seconds (9.4-12.1)
[2021-04-21 04:51] LABS: Calcium 9.2 mg/dL (8.6-10.3); Potassium 3.8 mEq/L (3.5-5.1)
[2021-04-21 04:54] LABS: Activated Partial Thrombo Time 84.5 Seconds (26.0-36.0)
[2021-04-21 05:00] LABS: Magnesium 1.9 mg/dL (1.6-2.6); Phosphorous 3.1 mg/dL (2.7-4.5)
[2021-04-21] MEDS ORDERED: Aspirin 81 MG TAB.CHEW PO ONE (06:00)
[2021-04-21] MEDS: Heparin 25,000UNIT/250ML 1/2NS 25,000 UNIT/250 ML IV.SOLN IVC SCH (07:04)
[2021-04-21] MEDS: Ranolazine 500 MG TAB.ER.12H PO SCH ×2 (08:24→20:18)
[2021-04-21] MEDS: Chlorhexidine Rinse 15 ML MOUTHWASH MM SCH ×2 (08:24→20:53)
[2021-04-21] MEDS: Aspirin 81 MG TAB.CHEW PO SCH (08:25)
[2021-04-21] MEDS: Carbidopa/Levodopa 25/100 TABLET PO SCH ×3 (08:25→20:19)
[2021-04-21] MEDS: Isosorbide MONOnitrate (24 HR) 30 MG TAB.ER.24H PO SCH (08:25)
[2021-04-21] MEDS ORDERED: Clindamycin 900 MG/50 ML 900 MG/50 ML IV.SOLN IVPB ONE (09:00)
[2021-04-21] MEDS ORDERED: Vancomycin 1,500 MG/265 ML IV.SOLN IVPB ONE (09:00)
[2021-04-21] MEDS: Insulin LISPRO 300 UNITS/3 ML VIAL SUBQ SCH ×4 (10:13→20:17)
[2021-04-21] MEDS ORDERED: 0.9 % Sodium Chloride 1,000 ML IVC SCH (10:15)
[2021-04-21] MEDS ORDERED: Heparin 15,000 UNIT in 0.9 % Sodium Chloride 500 ML IV ONE (12:30)
[2021-04-21] MEDS ORDERED: del Nido Cardioplegia Solution PF ONE (12:30)
[2021-04-21] MEDS ORDERED: del Nido Cardioplegia Solution PF SCH (12:30)
[2021-04-21] MEDS ORDERED: Norepinephrine 4 MG in 0.9 % Sodium Chloride 250 ML IVC PRN (12:30)
[2021-04-21] MEDS ORDERED: Chlorhexidine Rinse 15 ML MOUTHWASH MM SCH (12:30)
[2021-04-21] MEDS ORDERED: Buckersberg's Blood Cardioplegia PF SCH ×2 (12:30)
[2021-04-21 13:30] LABS: Basophils % 0.5 %; Eosinophils # 0.1 K/mcL (0.0-0.6); Eosinophils % 1.8 %; Hematocrit 34.8 % (37.5-50.1); Hemoglobin 11.4 g/dL (12.9-16.9); Immature Granulocytes % 0.5 % (0-4); Lymphocytes # 1.5 K/mcL (0.6-4.6); Lymphocytes % 22.4 %; Mean Corpuscular HGB Conc 32.8 g/dL (31.6-35.5); Mean Corpuscular Volume 91.6 fL (83.0-100.0); Monocytes # 0.8 K/mcL (0.0-1.3); Monocytes % 11.6 %; Neutrophils # 4.2 K/mcL (1.6-8.9); Platelet Count 166 K/mcL (140-400); Red Cell Distribution Width 14.3 % (11.5-14.5); Segmented Neutrophils % 63.2 %; White Blood Count 6.6 K/mcL (4.3-11.1)
[2021-04-21 13:38] LABS: INR 1.2; Prothrombin Time 12.9 Seconds (9.4-12.1)
[2021-04-21 14:28] LABS: Activated Partial Thrombo Time 124.2 Seconds (26.0-36.0)
[2021-04-21 14:45] LABS: BUN/Creatinine Ratio 21 (6-26); Blood Urea Nitrogen 30 mg/dL (8-23); Calcium 9.3 mg/dL (8.6-10.3); Carbon Dioxide 23 mEq/L (23-29); Chloride 100 mEq/L (98-107); Cholesterol 207 mg/dL (< 200); Glucose 185 mg/dL (70-105); HDL Cholesterol 26 mg/dL (40-59); Osmolality,Calculated 291 (280-300); Potassium 4.1 mEq/L (3.5-5.1); Sodium 135 mEq/L (136-145); Triglycerides 666 mg/dL (< 150); eGFR For African Americans > 60 (> 60); eGFR For Non-African Americans 50 (> 60)
[2021-04-21 15:06] LABS: Estimated Average Glucose 140 mg/dl; Hemoglobin A1C 6.5 %
[2021-04-21] MEDS: carvediloL 6.25 MG TABLET PO SCH (18:37)
[2021-04-22] MEDS: Heparin 25,000UNIT/250ML 1/2NS 25,000 UNIT/250 ML IV.SOLN IVC SCH (01:59)
[2021-04-22 03:12] LABS: Basophils % 0.5 %; Eosinophils # 0.1 K/mcL (0.0-0.6); Eosinophils % 2.1 %; Hematocrit 33.6 % (37.5-50.1); Hemoglobin 10.8 g/dL (12.9-16.9); Immature Granulocytes % 0.3 % (0-4); Lymphocytes # 1.5 K/mcL (0.6-4.6); Lymphocytes % 23.9 %; Mean Corpuscular HGB Conc 32.1 g/dL (31.6-35.5); Mean Corpuscular Hemoglobin 29.8 pg (28.0-33.3); Mean Corpuscular Volume 92.6 fL (83.0-100.0); Mean Platelet Volume 10.2 fL (9.4-12.4); Monocytes # 0.7 K/mcL (0.0-1.3); Monocytes % 11.8 %; Neutrophils # 3.7 K/mcL (1.6-8.9); Platelet Count 148 K/mcL (140-400); Red Blood Count 3.63 M/mcL (4.19-5.50); Red Cell Distribution Width 14.1 % (11.5-14.5); Segmented Neutrophils % 61.4 %; White Blood Count 6.1 K/mcL (4.3-11.1)
[2021-04-22 03:30] LABS: BUN/Creatinine Ratio 21 (6-26); Blood Urea Nitrogen 27 mg/dL (8-23); Calcium 9.5 mg/dL (8.6-10.3); Carbon Dioxide 24 mEq/L (23-29); Chloride 102 mEq/L (98-107); Glucose 114 mg/dL (70-105); Osmolality,Calculated 288 (280-300); Potassium 3.9 mEq/L (3.5-5.1); Sodium 136 mEq/L (136-145); eGFR For African Americans > 60 (> 60); eGFR For Non-African Americans 55 (> 60)
[2021-04-22] MEDS: Chlorhexidine Rinse 15 ML MOUTHWASH MM SCH ×2 (05:28→20:03)
[2021-04-22] MEDS ORDERED: Aspirin 81 MG TAB.CHEW PO ONE ×2 (06:00)
[2021-04-22] MEDS ORDERED: Papaverine 60 MG/2 ML VIAL IVP ONE (06:07)
[2021-04-22] MEDS ORDERED: Vancomycin 1,000 MG VIAL ONE (06:15)
[2021-04-22] MEDS ORDERED: NiCARdipine 2.5 MG/10 ML Syringe IVPB ONE (06:36)
[2021-04-22] MEDS ORDERED: *HR* Midazolam HCl 5 MG/5 ML VIAL IVP ONE (06:38)
[2021-04-22] MEDS ORDERED: *HR* FentaNYL (PF) 1,000 MCG/20 ML VIAL ONE (06:38)
[2021-04-22] MEDS ORDERED: *HR* Rocuronium Bromide 50 MG/5 ML VIAL ONE ×2 (06:40→11:29)
[2021-04-22] MEDS ORDERED: Famotidine 20 MG/2 ML VIAL ONE (06:41)
[2021-04-22] MEDS ORDERED: *HR* Etomidate 20 MG/10 ML AMPUL IVP ONE (06:41)
[2021-04-22] MEDS ORDERED: Tranexamic Acid 1,000 MG/10 ML VIAL ONE ×2 (06:43→10:01)
[2021-04-22] MEDS ORDERED: Protamine Sulfate 250 MG/25 ML VIAL IVP ONE (06:43)
[2021-04-22] MEDS ORDERED: Calcium Gluconate 1,000 MG/10 ML VIAL ONE (06:43)
[2021-04-22] MEDS ORDERED: niCARdipine 40 MG/200 ML MLS IVC ONE (06:44)
[2021-04-22] MEDS ORDERED: Heparin 15,000 UNIT in 0.9 % Sodium Chloride 500 ML IV ONE (07:00)
[2021-04-22] MEDS ORDERED: Norepinephrine 4 MG in 0.9 % Sodium Chloride 250 ML IVC PRN ×2 (07:00→14:31)
[2021-04-22] MEDS ORDERED: Clindamycin 900 MG/50 ML 900 MG/50 ML IV.SOLN IVPB ONE (07:00)
[2021-04-22] MEDS ORDERED: ceFAZolin 2,000 MG in Water for inj. (sterile) 20 ML IVP ONE (07:00)
[2021-04-22] MEDS ORDERED: Mannitol 25% vial 3.25 GM, Magnesium Sulfate 2 GM, Sodium Bicarbonate 13 MEQ, Potassium... PF ONE (07:00)
[2021-04-22] MEDS ORDERED: Sodium Bicarbonate 10 MEQ, Potassium Chloride 80 MEQ in CARDIOPLEGIC SOLUTION NO.1 1,00... PF SCH ×2 (07:00)
[2021-04-22] MEDS ORDERED: Vancomycin 1,500 MG/265 ML IV.SOLN IVPB ONE (07:00)
[2021-04-22] MEDS ORDERED: Mannitol 25% vial 3.25 GM, Magnesium Sulfate 2 GM, Sodium Bicarbonate 13 MEQ, Potassium... PF SCH (07:00)
[2021-04-22] MEDS ORDERED: del Nido Cardioplegia Solution PF ONE (08:00)
[2021-04-22 08:25] LABS: ABG Base Excess -2 mEq/L (-2 to 3); ABG Chloride 103 mEq/L (98-107); ABG Glucose 127 mg/dL (60-95); ABG HCO3 24 mEq/L (21-27); ABG Ionized Calcium 1.21 mmol/L (1.15-1.35); ABG Oxygen Saturation 100 % (95-98); ABG PCO2 44 mmHg (35-45); ABG PH 7.34 pH Units (7.32-7.45); ABG PO2 258 mmHg (85-104); ABG TCO2 25 mEq/L (20-26)
[2021-04-22] MEDS ORDERED: Water for inj. (sterile) 10 ML ONE (08:30)
[2021-04-22] MEDS: Insulin LISPRO 300 UNITS/3 ML VIAL SUBQ SCH (09:19)
[2021-04-22] MEDS: carvediloL 6.25 MG TABLET PO SCH (09:20)
[2021-04-22] MEDS: Ranolazine 500 MG TAB.ER.12H PO SCH (09:20)
[2021-04-22] MEDS: Isosorbide MONOnitrate (24 HR) 30 MG TAB.ER.24H PO SCH (09:20)
[2021-04-22] MEDS: Aspirin 81 MG TAB.CHEW PO SCH (09:20)
[2021-04-22] MEDS: Carbidopa/Levodopa 25/100 TABLET PO SCH (09:21)
[2021-04-22 09:44] LABS: ABG Base Excess -3 mEq/L (-2 to 3); ABG Chloride 103 mEq/L (98-107); ABG Glucose 180 mg/dL (60-95); ABG HCO3 23 mEq/L (21-27); ABG Ionized Calcium 1.22 mmol/L (1.15-1.35); ABG Oxygen Saturation 97 % (95-98); ABG PCO2 43 mmHg (35-45); ABG PH 7.34 pH Units (7.32-7.45); ABG PO2 93 mmHg (85-104); ABG TCO2 24 mEq/L (20-26)
[2021-04-22 10:52] LABS: ABG Base Excess -1 mEq/L (-2 to 3); ABG Chloride 100 mEq/L (98-107); ABG Glucose 165 mg/dL (60-95); ABG HCO3 24 mEq/L (21-27); ABG Ionized Calcium 1.06 mmol/L (1.15-1.35); ABG Oxygen Saturation 100 % (95-98); ABG PCO2 41 mmHg (35-45); ABG PH 7.38 pH Units (7.32-7.45); ABG PO2 381 mmHg (85-104); ABG TCO2 25 mEq/L (20-26)
[2021-04-22] MEDS ORDERED: D5% in Water 250 ML IV BAG IV ONE (11:25)
[2021-04-22] MEDS ORDERED: Tranexamic Acid 1,000 MG/10 ML VIAL IR ONE (11:25)
[2021-04-22] MEDS ORDERED: Mannitol 25% vial 12.5 GM/50 ML VIAL IVPB ONE (11:25)
[2021-04-22] MEDS ORDERED: Albumin Human 25% 25 GM/100 ML IV.SOLN IVPB ONE (11:25)
[2021-04-22] MEDS ORDERED: *HR* Heparin 10,000 UNIT/10 ML VIAL IR ONE (11:25)
[2021-04-22] MEDS ORDERED: *HR* Phenylephrine 10 MG/ML VIAL IVC ONE (11:25)
[2021-04-22] MEDS ORDERED: Heparin 1,000 UNITS/500 mL IV.SOLN IR ONE (11:25)
[2021-04-22] MEDS ORDERED: Lidocaine 2% Syringe 100 MG/5 ML IVP ONE (11:25)
[2021-04-22] MEDS ORDERED: *HR* Magnesium Sulfate 2 GM/50 ML PIGGYBACK IVPB ONE (11:25)
[2021-04-22 11:29] LABS: ABG Base Excess -1 mEq/L (-2 to 3); ABG Chloride 101 mEq/L (98-107); ABG Glucose 192 mg/dL (60-95); ABG HCO3 23 mEq/L (21-27); ABG Ionized Calcium 1.05 mmol/L (1.15-1.35); ABG Oxygen Saturation 100 % (95-98); ABG PCO2 38 mmHg (35-45); ABG PO2 384 mmHg (85-104); ABG TCO2 25 mEq/L (20-26)
[2021-04-22] MEDS ORDERED: *HR* DOBUTamine HCl 250 MG/20 ML VIAL ONE (11:48)
[2021-04-22] MEDS ORDERED: D5% in Water 250 ML ONE (11:48)
[2021-04-22 11:55] LABS: ABG Base Excess -3 mEq/L (-2 to 3); ABG Chloride 101 mEq/L (98-107); ABG Glucose 211 mg/dL (60-95); ABG HCO3 22 mEq/L (21-27); ABG Ionized Calcium 1.05 mmol/L (1.15-1.35); ABG Oxygen Saturation 100 % (95-98); ABG PCO2 36 mmHg (35-45); ABG PH 7.39 pH Units (7.32-7.45); ABG PO2 273 mmHg (85-104); ABG TCO2 23 mEq/L (20-26)
[2021-04-22] MEDS ORDERED: Albumin Human 5% 12.5 GM/250 ML IV.SOLN ONE ×2 (12:13→12:49)
[2021-04-22 12:23] LABS: ABG Base Excess -6 mEq/L (-2 to 3); ABG Chloride 99 mEq/L (98-107); ABG Glucose 192 mg/dL (60-95); ABG HCO3 20 mEq/L (21-27); ABG Ionized Calcium 1.93 mmol/L (1.15-1.35); ABG Oxygen Saturation 99 % (95-98); ABG PCO2 38 mmHg (35-45); ABG PH 7.33 pH Units (7.32-7.45); ABG PO2 169 mmHg (85-104); ABG TCO2 21 mEq/L (20-26)
[2021-04-22] MEDS ORDERED: niCARdipine 20 MG/200 ML MLS IVC ONE (13:05)
[2021-04-22] MEDS ORDERED: Albumin Human 5% 50.0 GM/1,000 ML IV.SOLN ONE (13:05)
[2021-04-22 14:14] LABS: ABG Base Excess -5 mEq/L (-2 to 3); ABG HCO3 21 mEq/L (21-27); ABG Oxygen Saturation 96 % (95-98); ABG PCO2 43 mmHg (35-45); ABG PH 7.31 pH Units (7.32-7.45); ABG PO2 89 mmHg (85-104); ABG TCO2 23 mEq/L (20-26); Blood Gas Modality ASSIST CONTROL; Blood Gas VT 500 cc
[2021-04-22] MEDS ORDERED: Ondansetron 4 MG/2 ML VIAL IVP PRN (14:31)
[2021-04-22] MEDS ORDERED: Insulin Regular, Human 100 UNIT/ML IV PRN (14:31)
[2021-04-22] MEDS ORDERED: Nitroglycerin 0.4 MG TAB.SUBL SL PRN (14:31)
[2021-04-22] MEDS ORDERED: Potassium Chloride 40 MEQ/200 ML BAG IVPB PRN (14:31)
[2021-04-22] MEDS ORDERED: Naloxone 0.4 MG/ML INJ IVP PRN ×2 (14:31)
[2021-04-22] MEDS ORDERED: *HR* Dextrose 50 % in Water (Syg) 50 ML SYRINGE IVP PRN (14:31)
[2021-04-22] MEDS ORDERED: Heparin 25,000UNIT/250ML 1/2NS 25,000 UNIT/250 ML IV.SOLN IVC SCH (14:31)
[2021-04-22 14:43] LABS: Eosinophils % 0.7 %; Immature Granulocytes % 0.7 % (0-4); Mean Corpuscular Volume 92.6 fL (83.0-100.0)
[2021-04-22 14:45] LABS: Basophils % 0.2 %; Eosinophils # 0.1 K/mcL (0.0-0.6); Hematocrit 28.6 % (37.5-50.1); Immature Platelets 5.4 % (1.1-6.1); Lymphocytes # 1.3 K/mcL (0.6-4.6); Lymphocytes % 12.1 %; Mean Corpuscular HGB Conc 33.6 g/dL (31.6-35.5); Mean Corpuscular Hemoglobin 31.1 pg (28.0-33.3); Mean Platelet Volume 10.1 fL (9.4-12.4); Monocytes # 1.1 K/mcL (0.0-1.3); Monocytes % 10.6 %; Neutrophils # 8.1 K/mcL (1.6-8.9); Platelet Count 120 K/mcL (140-400); Red Blood Count 3.09 M/mcL (4.19-5.50); Red Cell Distribution Width 14.2 % (11.5-14.5); Segmented Neutrophils % 75.7 %; White Blood Count 10.7 K/mcL (4.3-11.1)
[2021-04-22 14:49] LABS: INR 1.4
[2021-04-22 14:52] LABS: Activated Partial Thrombo Time 29.7 Seconds (26.0-36.0)
[2021-04-22 14:54] LABS: Hemoglobin 9.6 g/dL (12.9-16.9)
[2021-04-22 14:55] LABS: Prothrombin Time 15.2 Seconds (9.4-12.1)
[2021-04-22 14:56] LABS: BUN/Creatinine Ratio 20 (6-26); Blood Urea Nitrogen 24 mg/dL (8-23); Calcium 8.8 mg/dL (8.6-10.3); Carbon Dioxide 21 mEq/L (23-29); Chloride 106 mEq/L (98-107); Glucose 139 mg/dL (70-105); Magnesium 2.8 mg/dL (1.6-2.6); Osmolality,Calculated 284 (280-300); Potassium 4.2 mEq/L (3.5-5.1); Sodium 134 mEq/L (136-145); eGFR For African Americans > 60 (> 60); eGFR For Non-African Americans 59 (> 60)
[2021-04-22] MEDS: Albumin Human 5% 12.5 GM/250 ML IV.SOLN IVPB PRN ×4 (15:10→16:59)
[2021-04-22] MEDS ORDERED: *HR* FentaNYL (PF) 100 MCG/2 ML VIAL IVP ONE (15:14)
[2021-04-22] MEDS: CeFAZolin 2 GM/120 ML BAG IVPB SCH ×2 (16:26→23:08)
[2021-04-22] MEDS: Metoclopramide 10 MG/2 ML VIAL IVP SCH ×2 (17:13→23:08)
[2021-04-22] MEDS: *HR* HYDROmorphone 2 MG/ML SYRINGE IVP PRN ×2 (17:14→19:19)
[2021-04-22 18:19] LABS: ABG Base Excess -4 mEq/L (-2 to 3); ABG HCO3 23 mEq/L (21-27); ABG Oxygen Saturation 94 % (95-98); ABG PCO2 49 mmHg (35-45); ABG PH 7.27 pH Units (7.32-7.45); ABG PO2 82 mmHg (85-104); ABG TCO2 24 mEq/L (20-26); Blood Gas Modality CPAP/PS; Blood Gas Pressure Support 8 cm H2O
[2021-04-22] MEDS: Ketorolac 30 MG/ML VIAL IVP SCH ×2 (18:21→23:08)
[2021-04-22] MEDS ORDERED: Norepinephrine 4 MG/254 ML IV.SOLN IVC SCH (22:15)
[2021-04-22 23:59] LABS: ABG Base Excess -4 mEq/L (-2 to 3); ABG HCO3 22 mEq/L (21-27); ABG Oxygen Saturation 92 % (95-98); ABG PCO2 41 mmHg (35-45); ABG PH 7.34 pH Units (7.32-7.45); ABG PO2 68 mmHg (85-104); ABG TCO2 23 mEq/L (20-26)
[2021-04-23] MEDS: *HR* HYDROmorphone 2 MG/ML SYRINGE IVP PRN ×5 (02:21→21:13)
[2021-04-23 03:26] LABS: INR 1.3; Prothrombin Time 14.2 Seconds (9.4-12.1)
[2021-04-23 03:27] LABS: Mean Corpuscular Volume 94.2 fL (83.0-100.0); Mean Platelet Volume 10.7 fL (9.4-12.4)
[2021-04-23 03:28] LABS: Activated Partial Thrombo Time 30.3 Seconds (26.0-36.0)
[2021-04-23 03:29] LABS: Basophils % 0.2 %; Hematocrit 22.8 % (37.5-50.1); Hemoglobin 7.4 g/dL (12.9-16.9); Immature Granulocytes % 0.4 % (0-4); Immature Platelets 5.7 % (1.1-6.1); Lymphocytes # 1.2 K/mcL (0.6-4.6); Lymphocytes % 8.4 %; Mean Corpuscular HGB Conc 32.5 g/dL (31.6-35.5); Mean Corpuscular Hemoglobin 30.6 pg (28.0-33.3); Monocytes # 1.9 K/mcL (0.0-1.3); Monocytes % 13.5 %; Platelet Count 138 K/mcL (140-400); Red Blood Count 2.42 M/mcL (4.19-5.50); Red Cell Distribution Width 14.2 % (11.5-14.5); Segmented Neutrophils % 77.5 %; White Blood Count 14.2 K/mcL (4.3-11.1)
[2021-04-23 03:30] LABS: Magnesium 2.6 mg/dL (1.6-2.6); Potassium 4.8 mEq/L (3.5-5.1)
[2021-04-23] MEDS: Metoclopramide 10 MG/2 ML VIAL IVP SCH ×3 (05:02→17:26)
[2021-04-23] MEDS: Chlorhexidine Rinse 15 ML MOUTHWASH MM SCH ×2 (08:04→21:14)
[2021-04-23] MEDS ORDERED: Aspirin 81 MG TAB.CHEW PO SCH (09:00)
[2021-04-23] MEDS ORDERED: Aspirin Enteric Coated 81 MG Tablet PO SCH (09:00)
[2021-04-23] MEDS ORDERED: Bumetanide 1 MG/4 ML VIAL IVP ONE (09:49)
[2021-04-23] MEDS ORDERED: carvediloL 6.25 MG TABLET PO SCH (10:00)
[2021-04-23] MEDS ORDERED: 0.9 % Sodium Chloride 1,000 ML ONE (10:16)
[2021-04-23] MEDS ORDERED: *HR* Dextrose 50 % in Water (Syg) 50 ML SYRINGE IVP PRN (14:49)
[2021-04-23] MEDS ORDERED: Nitroglycerin 0.4 MG TAB.SUBL SL PRN (14:49)
[2021-04-23] MEDS ORDERED: Naloxone 0.4 MG/ML INJ IVP PRN ×2 (14:49)
[2021-04-23] MEDS ORDERED: Insulin Regular, Human 100 UNIT/ML IV PRN (14:49)
[2021-04-23] MEDS: carvediloL 6.25 MG TABLET PO SCH (17:25)
[2021-04-23] MEDS: Insulin LISPRO 300 UNITS/3 ML VIAL SUBQ SCH (21:20)
[2021-04-24] MEDS: Metoclopramide 10 MG/2 ML VIAL IVP SCH ×4 (01:06→17:19)
[2021-04-24 03:58] LABS: VBG Ionized Calcium 1.07 mmol/L (1.15-1.35)
[2021-04-24 04:06] LABS: Alanine Aminotransferase 16 Units/L (7-52); Albumin/Globulin Ratio 1.6 (1.1-2.2); Alkaline Phosphatase 51 Units/L (34-104); Aspartate Amino Transferase 77 Units/L (13-39); BUN/Creatinine Ratio 24 (6-26); Bilirubin,Total 0.6 mg/dL (0.3-1.0); Blood Urea Nitrogen 33 mg/dL (8-23); Calcium 8.9 mg/dL (8.6-10.3); Carbon Dioxide 21 mEq/L (23-29); Chloride 101 mEq/L (98-107); Globulin 2.5 g/dL (2.4-3.5); Glucose 176 mg/dL (70-105); Magnesium 2.3 mg/dL (1.6-2.6); Osmolality,Calculated 286 (280-300); Phosphorous 3.3 mg/dL (2.7-4.5); Potassium 4.5 mEq/L (3.5-5.1); Sodium 132 mEq/L (136-145); Total Protein 6.5 g/dL (6.4-8.9); eGFR For African Americans > 60 (> 60); eGFR For Non-African Americans 51 (> 60)
[2021-04-24] MEDS: *HR* HYDROmorphone 2 MG/ML SYRINGE IVP PRN ×2 (04:14→10:04)
[2021-04-24] MEDS: carvediloL 6.25 MG TABLET PO SCH ×2 (08:30→17:19)
[2021-04-24] MEDS: Chlorhexidine Rinse 15 ML MOUTHWASH MM SCH ×2 (08:30→21:38)
[2021-04-24] MEDS: Aspirin Enteric Coated 81 MG Tablet PO SCH (08:30)
[2021-04-24] MEDS: Insulin LISPRO 300 UNITS/3 ML VIAL SUBQ SCH ×4 (08:31→21:37)
[2021-04-24 11:41] LABS: Hematocrit 22.9 % (37.5-50.1); Mean Corpuscular Volume 93.9 fL (83.0-100.0); Red Blood Count 2.44 M/mcL (4.19-5.50)
[2021-04-24 11:43] LABS: Hemoglobin 7.2 g/dL (12.9-16.9); Immature Platelets 9.3 % (1.1-6.1); Mean Corpuscular HGB Conc 31.4 g/dL (31.6-35.5); Mean Corpuscular Hemoglobin 29.5 pg (28.0-33.3); Mean Platelet Volume 11.3 fL (9.4-12.4); Red Cell Distribution Width 13.9 % (11.5-14.5)
[2021-04-24] MEDS ORDERED: carvediloL 6.25 MG TABLET PO ONE (12:17)
[2021-04-24] MEDS: *HR* OxyCODONE/APAP 5/325 TABLET PO PRN ×2 (12:44→17:19)
[2021-04-25] MEDS: Metoclopramide 10 MG/2 ML VIAL IVP SCH ×4 (00:25→17:23)
[2021-04-25 00:54] LABS: VBG Ionized Calcium 1.14 mmol/L (1.15-1.35)
[2021-04-25 00:54] LABS: Basophils % 0.1 %; Eosinophils % 0.2 %; Hematocrit 22.4 % (37.5-50.1); Hemoglobin 7.2 g/dL (12.9-16.9); Immature Granulocytes % 0.8 % (0-4); Immature Platelets 8.7 % (1.1-6.1); Lymphocytes % 7.8 %; Mean Corpuscular HGB Conc 32.1 g/dL (31.6-35.5); Mean Corpuscular Hemoglobin 29.8 pg (28.0-33.3); Mean Corpuscular Volume 92.6 fL (83.0-100.0); Mean Platelet Volume 11.1 fL (9.4-12.4); Monocytes # 1.5 K/mcL (0.0-1.3); Monocytes % 11.4 %; Neutrophils # 10.7 K/mcL (1.6-8.9); Platelet Count 113 K/mcL (140-400); Red Blood Count 2.42 M/mcL (4.19-5.50); Red Cell Distribution Width 13.8 % (11.5-14.5); Segmented Neutrophils % 79.7 %; White Blood Count 13.4 K/mcL (4.3-11.1)
[2021-04-25 01:12] LABS: Alanine Aminotransferase 17 Units/L (7-52); Albumin 3.8 g/dL (3.5-5.7); Albumin/Globulin Ratio 1.4 (1.1-2.2); Alkaline Phosphatase 56 Units/L (34-104); Aspartate Amino Transferase 53 Units/L (13-39); BUN/Creatinine Ratio 36 (6-26); Bilirubin,Total 0.4 mg/dL (0.3-1.0); Blood Urea Nitrogen 43 mg/dL (8-23); Calcium 8.6 mg/dL (8.6-10.3); Carbon Dioxide 25 mEq/L (23-29); Chloride 99 mEq/L (98-107); Globulin 2.7 g/dL (2.4-3.5); Glucose 146 mg/dL (70-105); Magnesium 2.5 mg/dL (1.6-2.6); Osmolality,Calculated 285 (280-300); Phosphorous 2.4 mg/dL (2.7-4.5); Potassium 4.2 mEq/L (3.5-5.1); Sodium 131 mEq/L (136-145); Total Protein 6.5 g/dL (6.4-8.9); eGFR For African Americans > 60 (> 60); eGFR For Non-African Americans > 60 (> 60)
[2021-04-25] MEDS: *HR* OxyCODONE/APAP 5/325 TABLET PO PRN ×4 (04:16→17:23)
[2021-04-25] MEDS ORDERED: Clindamycin 900 MG/50 ML 900 MG/50 ML IV.SOLN IVPB ONE (07:00)
[2021-04-25] MEDS ORDERED: Heparin 15,000 UNIT in 0.9 % Sodium Chloride 500 ML IV ONE (07:00)
[2021-04-25] MEDS: Insulin LISPRO 300 UNITS/3 ML VIAL SUBQ SCH ×4 (08:34→20:23)
[2021-04-25] MEDS: Aspirin Enteric Coated 81 MG Tablet PO SCH (08:35)
[2021-04-25] MEDS: carvediloL 6.25 MG TABLET PO SCH ×2 (08:36→17:22)
[2021-04-25] MEDS: Chlorhexidine Rinse 15 ML MOUTHWASH MM SCH ×2 (08:36→20:23)
[2021-04-25] MEDS: Lisinopril-HCTZ 20-12.5mg TABLET PO SCH (12:20)
[2021-04-25] MEDS: Ondansetron 4 MG/2 ML VIAL IVP PRN (12:20)
[2021-04-25] MEDS: Carbidopa/Levodopa 25/100 TABLET PO SCH ×3 (12:21→20:23)
[2021-04-25] MEDS: GlipiZIDE 5 MG TABLET PO SCH (17:22)
[2021-04-25] MEDS: Mag Hydrox/Al Hydrox/Simeth 30 ML UDC PO SCH (17:25)
[2021-04-26] MEDS: Ondansetron 4 MG/2 ML VIAL IVP PRN (00:03)
[2021-04-26 04:11] LABS: Basophils % 0.1 %; Eosinophils # 0.1 K/mcL (0.0-0.6); Eosinophils % 0.4 %; Hematocrit 22.6 % (37.5-50.1); Hemoglobin 7.5 g/dL (12.9-16.9); Immature Granulocytes % 0.9 % (0-4); Lymphocytes # 1.2 K/mcL (0.6-4.6); Lymphocytes % 8.7 %; Mean Corpuscular HGB Conc 33.2 g/dL (31.6-35.5); Mean Corpuscular Hemoglobin 30.6 pg (28.0-33.3); Mean Corpuscular Volume 92.2 fL (83.0-100.0); Mean Platelet Volume 11.1 fL (9.4-12.4); Monocytes # 1.8 K/mcL (0.0-1.3); Monocytes % 12.8 %; Neutrophils # 10.7 K/mcL (1.6-8.9); Nucleated Red Blood Cells 0.3 /100 WBC (0); Platelet Count 174 K/mcL (140-400); Red Blood Count 2.45 M/mcL (4.19-5.50); Red Cell Distribution Width 13.8 % (11.5-14.5); Segmented Neutrophils % 77.1 %; White Blood Count 13.9 K/mcL (4.3-11.1)
[2021-04-26 04:24] LABS: VBG Ionized Calcium 1.29 mmol/L (1.15-1.35)
[2021-04-26 04:30] LABS: Alanine Aminotransferase 8 Units/L (7-52); Albumin 3.7 g/dL (3.5-5.7); Albumin/Globulin Ratio 1.2 (1.1-2.2); Alkaline Phosphatase 77 Units/L (34-104); Aspartate Amino Transferase 39 Units/L (13-39); BUN/Creatinine Ratio 45 (6-26); Bilirubin,Total 0.4 mg/dL (0.3-1.0); Blood Urea Nitrogen 49 mg/dL (8-23); Calcium 8.5 mg/dL (8.6-10.3); Carbon Dioxide 25 mEq/L (23-29); Chloride 99 mEq/L (98-107); Glucose 134 mg/dL (70-105); Magnesium 2.7 mg/dL (1.6-2.6); Osmolality,Calculated 291 (280-300); Phosphorous 2.8 mg/dL (2.7-4.5); Potassium 3.9 mEq/L (3.5-5.1); Sodium 133 mEq/L (136-145); Total Protein 6.7 g/dL (6.4-8.9); eGFR For African Americans > 60 (> 60); eGFR For Non-African Americans > 60 (> 60)
[2021-04-26] MEDS: Carbidopa/Levodopa 25/100 TABLET PO SCH ×3 (08:03→20:04)
[2021-04-26] MEDS: *HR* OxyCODONE/APAP 5/325 TABLET PO PRN (08:03)
[2021-04-26] MEDS: Lisinopril-HCTZ 20-12.5mg TABLET PO SCH (08:03)
[2021-04-26] MEDS: carvediloL 6.25 MG TABLET PO SCH ×2 (08:03→17:01)
[2021-04-26] MEDS: Mag Hydrox/Al Hydrox/Simeth 30 ML UDC PO SCH (08:04)
[2021-04-26] MEDS: GlipiZIDE 5 MG TABLET PO SCH ×2 (08:04→17:00)
[2021-04-26] MEDS: Insulin LISPRO 300 UNITS/3 ML VIAL SUBQ SCH ×4 (08:04→20:04)
[2021-04-26] MEDS: Aspirin Enteric Coated 81 MG Tablet PO SCH (08:04)
[2021-04-26] MEDS: Chlorhexidine Rinse 15 ML MOUTHWASH MM SCH ×2 (08:04→20:04)
[2021-04-26] MEDS ORDERED: 0.9 % Sodium Chloride 250 ML ONE (12:11)
[2021-04-26] MEDS ORDERED: Bumetanide 1 MG/4 ML VIAL IVP ONE (14:00)
[2021-04-26] MEDS ORDERED: Amiodarone Premix 360 MG/200 ML BAG IVC ONE (17:40)
[2021-04-26] MEDS ORDERED: Amiodarone Premix 150 MG/100 ML BAG IVPB ONE (17:45)
[2021-04-26] MEDS: Acetaminophen 325 MG TABLET PO PRN (20:04)
[2021-04-26] MEDS: Amiodarone Premix 360 MG/200 ML BAG IVC SCH (23:33)
[2021-04-27 05:09] LABS: Basophils % 0.3 %; Eosinophils # 0.2 K/mcL (0.0-0.6); Eosinophils % 1.3 %; Hematocrit 28.5 % (37.5-50.1); Immature Granulocytes % 0.9 % (0-4); Lymphocytes # 1.1 K/mcL (0.6-4.6); Lymphocytes % 9.7 %; Mean Corpuscular HGB Conc 32.6 g/dL (31.6-35.5); Mean Corpuscular Hemoglobin 30.1 pg (28.0-33.3); Mean Corpuscular Volume 92.2 fL (83.0-100.0); Mean Platelet Volume 10.8 fL (9.4-12.4); Monocytes # 1.6 K/mcL (0.0-1.3); Monocytes % 13.3 %; Neutrophils # 8.8 K/mcL (1.6-8.9); Nucleated Red Blood Cells 0.5 /100 WBC (0); Platelet Count 180 K/mcL (140-400); Red Blood Count 3.09 M/mcL (4.19-5.50); Segmented Neutrophils % 74.5 %; White Blood Count 11.7 K/mcL (4.3-11.1)
[2021-04-27 05:10] LABS: Hemoglobin 9.3 g/dL (12.9-16.9)
[2021-04-27 05:20] LABS: Alanine Aminotransferase 6 Units/L (7-52); Albumin 3.5 g/dL (3.5-5.7); Albumin/Globulin Ratio 1.2 (1.1-2.2); Alkaline Phosphatase 93 Units/L (34-104); Aspartate Amino Transferase 32 Units/L (13-39); BUN/Creatinine Ratio 42 (6-26); Bilirubin,Total 0.5 mg/dL (0.3-1.0); Blood Urea Nitrogen 50 mg/dL (8-23); Calcium 8.3 mg/dL (8.6-10.3); Carbon Dioxide 27 mEq/L (23-29); Chloride 99 mEq/L (98-107); Glucose 105 mg/dL (70-105); Magnesium 2.8 mg/dL (1.6-2.6); Osmolality,Calculated 296 (280-300); Phosphorous 3.7 mg/dL (2.7-4.5); Potassium 3.7 mEq/L (3.5-5.1); Sodium 136 mEq/L (136-145); Total Protein 6.5 g/dL (6.4-8.9); eGFR For African Americans > 60 (> 60); eGFR For Non-African Americans 60 (> 60)
[2021-04-27] MEDS: carvediloL 6.25 MG TABLET PO SCH ×2 (07:47→17:36)
[2021-04-27] MEDS: Lisinopril-HCTZ 20-12.5mg TABLET PO SCH (07:47)
[2021-04-27] MEDS: GlipiZIDE 5 MG TABLET PO SCH ×2 (07:47→17:36)
[2021-04-27] MEDS: Aspirin Enteric Coated 81 MG Tablet PO SCH (07:48)
[2021-04-27] MEDS: Chlorhexidine Rinse 15 ML MOUTHWASH MM SCH ×2 (07:49→20:21)
[2021-04-27] MEDS: Bumetanide 1 MG TABLET PO SCH (07:50)
[2021-04-27] MEDS: Insulin LISPRO 300 UNITS/3 ML VIAL SUBQ SCH ×4 (08:05→20:22)
[2021-04-27] MEDS: Mag Hydrox/Al Hydrox/Simeth 30 ML UDC PO SCH (08:06)
[2021-04-27] MEDS: Carbidopa/Levodopa 25/100 TABLET PO SCH ×3 (08:06→20:21)
[2021-04-27] MEDS: Amiodarone Premix 360 MG/200 ML BAG IVC SCH ×2 (12:12→13:30)
[2021-04-27] MEDS ORDERED: carvediloL 6.25 MG TABLET PO ONE (13:51)
[2021-04-27] MEDS ORDERED: *HR* Amiodarone 200 MG TABLET PO SCH (21:00)
[2021-04-28] MEDS: Amiodarone Premix 360 MG/200 ML BAG IVC SCH (00:19)
[2021-04-28 02:05] LABS: Basophils % 0.2 %; Eosinophils # 0.1 K/mcL (0.0-0.6); Eosinophils % 0.8 %; Hematocrit 26.9 % (37.5-50.1); Hemoglobin 8.8 g/dL (12.9-16.9); Immature Granulocytes % 0.8 % (0-4); Lymphocytes # 1.3 K/mcL (0.6-4.6); Lymphocytes % 9.3 %; Mean Corpuscular HGB Conc 32.7 g/dL (31.6-35.5); Mean Corpuscular Hemoglobin 30.2 pg (28.0-33.3); Mean Corpuscular Volume 92.4 fL (83.0-100.0); Mean Platelet Volume 10.6 fL (9.4-12.4); Monocytes % 13.7 %; Neutrophils # 10.7 K/mcL (1.6-8.9); Nucleated Red Blood Cells 0.8 /100 WBC (0); Platelet Count 207 K/mcL (140-400); Red Blood Count 2.91 M/mcL (4.19-5.50); Red Cell Distribution Width 13.8 % (11.5-14.5); Segmented Neutrophils % 75.2 %; White Blood Count 14.3 K/mcL (4.3-11.1)
[2021-04-28 02:08] LABS: VBG Ionized Calcium 0.87 mmol/L (1.15-1.35)
[2021-04-28 02:29] LABS: Alanine Aminotransferase 6 Units/L (7-52); Albumin 3.5 g/dL (3.5-5.7); Albumin/Globulin Ratio 1.2 (1.1-2.2); Alkaline Phosphatase 108 Units/L (34-104); Aspartate Amino Transferase 31 Units/L (13-39); BUN/Creatinine Ratio 46 (6-26); Bilirubin,Total 0.6 mg/dL (0.3-1.0); Blood Urea Nitrogen 55 mg/dL (8-23); Calcium 8.1 mg/dL (8.6-10.3); Carbon Dioxide 26 mEq/L (23-29); Chloride 96 mEq/L (98-107); Globulin 2.9 g/dL (2.4-3.5); Glucose 98 mg/dL (70-105); Magnesium 2.6 mg/dL (1.6-2.6); Osmolality,Calculated 281 (280-300); Phosphorous 3.9 mg/dL (2.7-4.5); Potassium 3.5 mEq/L (3.5-5.1); Sodium 128 mEq/L (136-145); Total Protein 6.4 g/dL (6.4-8.9); eGFR For African Americans > 60 (> 60); eGFR For Non-African Americans > 60 (> 60)
[2021-04-28] MEDS: Insulin LISPRO 300 UNITS/3 ML VIAL SUBQ SCH ×4 (08:16→20:26)
[2021-04-28] MEDS: Mag Hydrox/Al Hydrox/Simeth 30 ML UDC PO SCH (08:32)
[2021-04-28] MEDS: Aspirin Enteric Coated 81 MG Tablet PO SCH (08:33)
[2021-04-28] MEDS: Bumetanide 1 MG TABLET PO SCH (08:33)
[2021-04-28] MEDS: carvediloL 6.25 MG TABLET PO SCH ×2 (08:33→18:46)
[2021-04-28] MEDS: GlipiZIDE 5 MG TABLET PO SCH ×2 (08:33→18:01)
[2021-04-28] MEDS: Chlorhexidine Rinse 15 ML MOUTHWASH MM SCH ×2 (08:33→20:37)
[2021-04-28] MEDS: Carbidopa/Levodopa 25/100 TABLET PO SCH ×3 (08:34→20:36)
[2021-04-28] MEDS ORDERED: *HR* Amiodarone 200 MG TABLET PO SCH (10:09)
[2021-04-28] MEDS: Acetaminophen 325 MG TABLET PO PRN ×2 (13:14→20:37)
[2021-04-28] MEDS ORDERED: 0.9 % Sodium Chloride 500 ML IV ONE ×2 (15:35→17:53)
[2021-04-28] MEDS ORDERED: Albumin Human 5% 12.5 GM/250 ML IV.SOLN IVPB ONE ×2 (15:36→19:00)
[2021-04-28] MEDS ORDERED: Ringers Solution, Lactated 500 ML IVC ONE (19:01)
[2021-04-28] MEDS: *HR* Amiodarone 200 MG TABLET PO SCH (20:37)
[2021-04-29 05:23] LABS: VBG Ionized Calcium 0.99 mmol/L (1.15-1.35)
[2021-04-29 05:33] LABS: Basophils % 0.1 %; Eosinophils # 0.1 K/mcL (0.0-0.6); Eosinophils % 0.9 %; Hematocrit 22.9 % (37.5-50.1); Hemoglobin 7.5 g/dL (12.9-16.9); Immature Granulocytes % 0.7 % (0-4); Lymphocytes % 9.1 %; Mean Corpuscular HGB Conc 32.8 g/dL (31.6-35.5); Mean Corpuscular Hemoglobin 29.8 pg (28.0-33.3); Mean Corpuscular Volume 90.9 fL (83.0-100.0); Mean Platelet Volume 10.8 fL (9.4-12.4); Monocytes # 1.3 K/mcL (0.0-1.3); Monocytes % 11.8 %; Neutrophils # 8.7 K/mcL (1.6-8.9); Nucleated Red Blood Cells 0.4 /100 WBC (0); Platelet Count 208 K/mcL (140-400); Red Blood Count 2.52 M/mcL (4.19-5.50); Red Cell Distribution Width 13.7 % (11.5-14.5); Segmented Neutrophils % 77.4 %; White Blood Count 11.2 K/mcL (4.3-11.1)
[2021-04-29 05:47] LABS: Alanine Aminotransferase 13 Units/L (7-52); Albumin 3.6 g/dL (3.5-5.7); Albumin/Globulin Ratio 1.2 (1.1-2.2); Alkaline Phosphatase 113 Units/L (34-104); Aspartate Amino Transferase 25 Units/L (13-39); BUN/Creatinine Ratio 42 (6-26); Bilirubin,Total 0.6 mg/dL (0.3-1.0); Blood Urea Nitrogen 46 mg/dL (8-23); Calcium 8.2 mg/dL (8.6-10.3); Carbon Dioxide 26 mEq/L (23-29); Chloride 96 mEq/L (98-107); Glucose 98 mg/dL (70-105); Magnesium 2.6 mg/dL (1.6-2.6); Osmolality,Calculated 286 (280-300); Phosphorous 3.2 mg/dL (2.7-4.5); Potassium 3.4 mEq/L (3.5-5.1); Sodium 132 mEq/L (136-145); Total Protein 6.6 g/dL (6.4-8.9); eGFR For African Americans > 60 (> 60); eGFR For Non-African Americans > 60 (> 60)
[2021-04-29] MEDS: Insulin LISPRO 300 UNITS/3 ML VIAL SUBQ SCH ×4 (09:29→20:43)
[2021-04-29] MEDS: Carbidopa/Levodopa 25/100 TABLET PO SCH ×3 (09:40→20:43)
[2021-04-29] MEDS: Chlorhexidine Rinse 15 ML MOUTHWASH MM SCH (09:40)
[2021-04-29] MEDS: Mag Hydrox/Al Hydrox/Simeth 30 ML UDC PO SCH (09:40)
[2021-04-29] MEDS: Aspirin Enteric Coated 81 MG Tablet PO SCH (09:41)
[2021-04-29] MEDS: *HR* Amiodarone 200 MG TABLET PO SCH ×2 (09:41→20:43)
[2021-04-29] MEDS: Bumetanide 1 MG TABLET PO SCH (09:41)
[2021-04-29] MEDS: carvediloL 6.25 MG TABLET PO SCH ×2 (09:45→16:12)
[2021-04-29] MEDS: GlipiZIDE 5 MG TABLET PO SCH ×2 (09:46→16:13)
[2021-04-29] MEDS ORDERED: Perflutren Lipid Microsphere 1.3 ML in 0.9 % Sodium Chloride 8.7 ML IVP PRN ×2 (10:19→10:39)
[2021-04-29] MEDS ORDERED: Naloxone 0.4 MG/ML INJ IVP PRN (10:39)
[2021-04-29] MEDS ORDERED: Ondansetron 4 MG/2 ML VIAL IVP PRN (10:39)
[2021-04-29] MEDS ORDERED: *HR* Dextrose 50 % in Water (Syg) 50 ML SYRINGE IVP PRN (10:39)
[2021-04-29] MEDS ORDERED: *HR* OxyCODONE/APAP 5/325 TABLET PO PRN (10:39)
[2021-04-29] MEDS ORDERED: Nitroglycerin 0.4 MG TAB.SUBL SL PRN (10:39)
[2021-04-29] MEDS ORDERED: 0.9 % Sodium Chloride 250 ML ONE (12:46)
[2021-04-29] MEDS: Acetaminophen 325 MG TABLET PO PRN (13:27)
[2021-04-30] MEDS ORDERED: Megestrol Acetate 400 MG/10 ML UDC PO SCH (09:00)
[2021-04-30] MEDS: Insulin LISPRO 300 UNITS/3 ML VIAL SUBQ SCH ×4 (09:13→21:20)
[2021-04-30] MEDS: Carbidopa/Levodopa 25/100 TABLET PO SCH ×3 (09:14→21:17)
[2021-04-30] MEDS: Aspirin Enteric Coated 81 MG Tablet PO SCH (09:14)
[2021-04-30] MEDS: GlipiZIDE 5 MG TABLET PO SCH ×2 (09:14→17:41)
[2021-04-30] MEDS: *HR* Amiodarone 200 MG TABLET PO SCH ×2 (09:15→21:16)
[2021-04-30] MEDS: carvediloL 6.25 MG TABLET PO SCH ×2 (09:16→17:40)
[2021-04-30] MEDS: Bumetanide 1 MG TABLET PO SCH (09:16)
[2021-04-30] MEDS: Colchicine 0.6 MG TABLET PO SCH (09:16)
[2021-04-30] MEDS: Megestrol Acetate 400 MG/10 ML UDC PO SCH (09:22)
[2021-04-30] MEDS: Mag Hydrox/Al Hydrox/Simeth 30 ML UDC PO SCH (09:22)
[2021-04-30] MEDS: Furosemide 20 MG/2 ML VIAL IVP SCH ×2 (11:56→21:17)
[2021-04-30 15:15] LABS: VBG Ionized Calcium 0.97 mmol/L (1.15-1.35)
[2021-04-30 15:20] LABS: Basophils % 0.1 %; Eosinophils % 0.3 %; Hematocrit 26.6 % (37.5-50.1); Hemoglobin 8.7 g/dL (12.9-16.9); Immature Granulocytes % 1.3 % (0-4); Lymphocytes # 0.8 K/mcL (0.6-4.6); Lymphocytes % 6.2 %; Mean Corpuscular HGB Conc 32.7 g/dL (31.6-35.5); Mean Corpuscular Hemoglobin 29.3 pg (28.0-33.3); Mean Corpuscular Volume 89.6 fL (83.0-100.0); Mean Platelet Volume 10.4 fL (9.4-12.4); Monocytes # 1.2 K/mcL (0.0-1.3); Monocytes % 8.8 %; Neutrophils # 11.3 K/mcL (1.6-8.9); Platelet Count 277 K/mcL (140-400); Red Blood Count 2.97 M/mcL (4.19-5.50); Red Cell Distribution Width 13.9 % (11.5-14.5); Segmented Neutrophils % 83.3 %; White Blood Count 13.6 K/mcL (4.3-11.1)
[2021-04-30 15:33] LABS: Alanine Aminotransferase 15 Units/L (7-52); Albumin 3.6 g/dL (3.5-5.7); Albumin/Globulin Ratio 1.1 (1.1-2.2); Alkaline Phosphatase 101 Units/L (34-104); Aspartate Amino Transferase 27 Units/L (13-39); BUN/Creatinine Ratio 28 (6-26); Bilirubin,Total 0.7 mg/dL (0.3-1.0); Blood Urea Nitrogen 30 mg/dL (8-23); Calcium 8.2 mg/dL (8.6-10.3); Carbon Dioxide 23 mEq/L (23-29); Chloride 96 mEq/L (98-107); Globulin 3.3 g/dL (2.4-3.5); Glucose 157 mg/dL (70-105); Magnesium 2.1 mg/dL (1.6-2.6); Osmolality,Calculated 281 (280-300); Phosphorous 3.1 mg/dL (2.7-4.5); Potassium 3.5 mEq/L (3.5-5.1); Sodium 131 mEq/L (136-145); Total Protein 6.9 g/dL (6.4-8.9); Uric Acid 8.3 mg/dL (2.3-7.6); eGFR For African Americans > 60 (> 60); eGFR For Non-African Americans > 60 (> 60)
[2021-05-01] MEDS ORDERED: *HR* Metoprolol 5 MG/5 ML VIAL IVP ONE ×2 (03:25)
[2021-05-01 05:44] LABS: Basophils % 0.2 %; Eosinophils # 0.1 K/mcL (0.0-0.6); Eosinophils % 0.7 %; Hematocrit 26.9 % (37.5-50.1); Hemoglobin 8.6 g/dL (12.9-16.9); Immature Granulocytes % 1.3 % (0-4); Lymphocytes # 0.9 K/mcL (0.6-4.6); Lymphocytes % 7.6 %; Mean Corpuscular Hemoglobin 28.7 pg (28.0-33.3); Mean Corpuscular Volume 89.7 fL (83.0-100.0); Mean Platelet Volume 10.4 fL (9.4-12.4); Monocytes # 1.1 K/mcL (0.0-1.3); Monocytes % 9.1 %; Neutrophils # 9.8 K/mcL (1.6-8.9); Nucleated Red Blood Cells 0.2 /100 WBC (0); Platelet Count 304 K/mcL (140-400); Segmented Neutrophils % 81.1 %; White Blood Count 12.1 K/mcL (4.3-11.1)
[2021-05-01 06:09] LABS: Phosphorous 2.7 mg/dL (2.7-4.5)
[2021-05-01 06:11] LABS: BUN/Creatinine Ratio 25 (6-26); Blood Urea Nitrogen 27 mg/dL (8-23); Calcium 8.5 mg/dL (8.6-10.3); Carbon Dioxide 26 mEq/L (23-29); Chloride 94 mEq/L (98-107); Glucose 65 mg/dL (70-105); Osmolality,Calculated 277 (280-300); Potassium 3.6 mEq/L (3.5-5.1); Sodium 132 mEq/L (136-145); eGFR For African Americans > 60 (> 60); eGFR For Non-African Americans > 60 (> 60)
[2021-05-01] MEDS ORDERED: *HR* Amiodarone 200 MG TABLET PO SCH ×2 (09:00)
[2021-05-01] MEDS ORDERED: Amiodarone Premix 360 MG/200 ML BAG IVC ONE (09:35)
[2021-05-01] MEDS: Insulin LISPRO 300 UNITS/3 ML VIAL SUBQ SCH ×4 (09:56→20:34)
[2021-05-01] MEDS: Carbidopa/Levodopa 25/100 TABLET PO SCH ×3 (09:57→20:34)
[2021-05-01] MEDS: carvediloL 6.25 MG TABLET PO SCH ×2 (09:57→17:45)
[2021-05-01] MEDS: Bumetanide 1 MG TABLET PO SCH (09:58)
[2021-05-01] MEDS: Mag Hydrox/Al Hydrox/Simeth 30 ML UDC PO SCH (09:58)
[2021-05-01] MEDS: Colchicine 0.6 MG TABLET PO SCH (09:58)
[2021-05-01] MEDS: Megestrol Acetate 400 MG/10 ML UDC PO SCH (09:58)
[2021-05-01] MEDS: Aspirin Enteric Coated 81 MG Tablet PO SCH (10:01)
[2021-05-01] MEDS: GlipiZIDE 5 MG TABLET PO SCH ×2 (10:01→17:45)
[2021-05-01] MEDS ORDERED: Amiodarone Premix 150 MG/100 ML BAG IVPB ONE (10:14)
[2021-05-01] MEDS: *HR* Amiodarone 200 MG TABLET PO SCH (20:35)
[2021-05-02] MEDS: *HR* Amiodarone 200 MG TABLET PO SCH (07:47)
[2021-05-02] MEDS: Colchicine 0.6 MG TABLET PO SCH (07:47)
[2021-05-02] MEDS: GlipiZIDE 5 MG TABLET PO SCH ×2 (07:47→18:22)
[2021-05-02] MEDS: Bumetanide 1 MG TABLET PO SCH (07:47)
[2021-05-02] MEDS: Mag Hydrox/Al Hydrox/Simeth 30 ML UDC PO SCH (07:48)
[2021-05-02] MEDS: carvediloL 6.25 MG TABLET PO SCH (07:48)
[2021-05-02] MEDS: Carbidopa/Levodopa 25/100 TABLET PO SCH ×2 (07:48→18:22)
[2021-05-02] MEDS: Aspirin Enteric Coated 81 MG Tablet PO SCH (07:48)
[2021-05-02] MEDS: Megestrol Acetate 400 MG/10 ML UDC PO SCH (07:48)
[2021-05-02] MEDS: Insulin LISPRO 300 UNITS/3 ML VIAL SUBQ SCH ×3 (07:56→18:23)
[2021-05-02 09:50] LABS: INR 1.4; Prothrombin Time 15.9 Seconds (9.4-12.1)
[2021-05-02] MEDS: Acetaminophen 325 MG TABLET PO PRN ×2 (11:28→19:33)
[2021-05-02 16:39] VITALS: BP 128/62; PULSE 70; TEMP 98.5; O2SAT 96
[2021-05-02] MEDS ORDERED: carvediloL 6.25 MG TABLET PO SCH (17:00)
[2021-05-02 17:18] LABS: Adenovirus Not Detected (Not Detect); Bordetella Pertussis Not Detected (Not Detect); Chlamydophila pneumoniae Not Detected (Not Detect); Coronavirus 229E Not Detected (Not Detect); Coronavirus HKU1 Not Detected (Not Detect); Coronavirus NL63 Not Detected (Not Detect); Coronavirus OC43 Not Detected (Not Detect); Human Metapneumovirus Not Detected (Not Detect); Human Rhinovirus/Enterovirus Not Detected (Not Detect); Influenza A Subtype 2009 H1 Not Detected (Not Detect); Influenza B Not Detected (Not Detect); Mycoplasma pneumoniae Not Detected (Not Detect); Parainfluenza Virus 1 Not Detected (Not Detect); Parainfluenza Virus 2 Not Detected (Not Detect); Parainfluenza Virus 3 Not Detected (Not Detect); Parainfluenza Virus 4 Not Detected (Not Detect); Respiratory Syncytial Virus Not Detected (Not Detect); SARS-CoV-2 Not Detected (Not Detect)
[2021-05-02] MEDS ORDERED: *HR* Warfarin 3 MG TABLET PO ONE (18:00)
[2021-05-02] MEDS ORDERED: Warfarin perPT PO SCH (18:00)
== END 2021-05-02 20:41 | disposition other institution (70) | DRG 216 ==
LOC: 3ANU 17:28 → EMEROOARM 17:28 → 3ANU 04-18 00:45 → SUATTDRO 04-18 00:58 → 2NNU 04-21 20:28 → ICNU 04-28 18:17 → 2NNU 04-29 17:16
PROVIDERS: ADMIT Internal Medicine; ATTEND Internal Medicine

== ENCOUNTER 2021-05-26 17:53 | Inpatient (IN) ==
[2021-05-26] MEDS ORDERED: SODIUM CHLORIDE/NAHCO3/KCL/PEG 4,000 ML SOLN.RECON PO ONE ×2 (20:55→22:25)
[2021-05-26 21:13] LABS: Hematocrit 29.3 % (37.5-50.1); Hemoglobin 8.5 g/dL (12.9-16.9)
[2021-05-26] MEDS ORDERED: Naloxone 0.4 MG/ML INJ IVP PRN (21:19)
[2021-05-26] MEDS ORDERED: Melatonin 3 MG TABLET PO PRN (21:19)
[2021-05-26 22:08] LABS: Basophils # 0.1 K/mcL (0.0-0.2); Basophils % 0.4 %; Eosinophils # 0.1 K/mcL (0.0-0.6); Eosinophils % 0.8 %; Immature Granulocytes % 0.9 % (0-4); Lymphocytes # 2.5 K/mcL (0.6-4.6); Lymphocytes % 20.8 %; Mean Corpuscular HGB Conc 29.3 g/dL (31.6-35.5); Mean Corpuscular Hemoglobin 28.1 pg (28.0-33.3); Mean Platelet Volume 9.8 fL (9.4-12.4); Monocytes # 0.3 K/mcL (0.0-1.3); Monocytes % 2.9 %; Neutrophils # 8.8 K/mcL (1.6-8.9); Nucleated Red Blood Cells 0.3 /100 WBC (0); Platelet Count 390 K/mcL (140-400); Red Blood Count 3.02 M/mcL (4.19-5.50); Red Cell Distribution Width 15.8 % (11.5-14.5); Segmented Neutrophils % 74.2 %; White Blood Count 11.9 K/mcL (4.3-11.1)
[2021-05-26] MEDS ORDERED: *HR* HYDROcodone/Acet 5/325 mg TABLET PO PRN (23:46)
[2021-05-27] MEDS ORDERED: *HR* Dextrose 50 % in Water (Syg) 50 ML SYRINGE IVP PRN ×2 (01:50→16:24)
[2021-05-27] MEDS ORDERED: D5% in Water 1,000 ML IVC PRN ×2 (01:50→16:24)
[2021-05-27] MEDS ORDERED: Dextrose Gel 15 GM/37.5 ML TUBE PO PRN ×4 (01:50→16:24)
[2021-05-27] MEDS ORDERED: 0.9 % Sodium Chloride 500 ML IVC ONE (06:42)
[2021-05-27] MEDS ORDERED: 0.9 % Sodium Chloride 500 ML ONE ×3 (06:46→13:09)
[2021-05-27] MEDS: Ondansetron ODT 4 MG TAB.RAPDIS SL PRN ×2 (06:49→15:59)
[2021-05-27 07:13] LABS: Basophils % 0.2 %; Hematocrit 21.2 % (37.5-50.1); Immature Granulocytes % 0.6 % (0-4); Lymphocytes # 3.2 K/mcL (0.6-4.6); Lymphocytes % 13.4 %; Mean Corpuscular HGB Conc 31.1 g/dL (31.6-35.5); Mean Corpuscular Hemoglobin 28.3 pg (28.0-33.3); Mean Platelet Volume 9.9 fL (9.4-12.4); Monocytes % 6.4 %; Neutrophils # 19.1 K/mcL (1.6-8.9); Nucleated Red Blood Cells 0.1 /100 WBC (0); Platelet Count 280 K/mcL (140-400); Red Blood Count 2.33 M/mcL (4.19-5.50); Red Cell Distribution Width 15.9 % (11.5-14.5); Segmented Neutrophils % 79.4 %
[2021-05-27 07:37] LABS: Basophils # 0.1 K/mcL (0.0-0.2); Hemoglobin 6.6 g/dL (12.9-16.9); Monocytes # 1.5 K/mcL (0.0-1.3); White Blood Count 24.1 K/mcL (4.3-11.1)
[2021-05-27] MEDS ORDERED: Isovue-370 500 ML BOTTLE IVP ONE (08:14)
[2021-05-27 08:28] LABS: INR 1.7; Prothrombin Time 19.2 Seconds (9.4-12.1)
[2021-05-27] MEDS ORDERED: Ranolazine 500 MG TAB.ER.12H PO SCH ×2 (09:00→21:00)
[2021-05-27] MEDS ORDERED: HUM PROTHROMBIN CPLX IVPB ONE ×3 (09:00→16:24)
[2021-05-27] MEDS ORDERED: *HR* Amiodarone 200 MG TABLET PO SCH (09:00)
[2021-05-27] MEDS ORDERED: Carbidopa/Levodopa 25/100 TABLET PO SCH (09:00)
[2021-05-27] MEDS ORDERED: [UNRECOGNIZED DRUG - OTHER] IVPB ONE ×2 (09:00→16:24)
[2021-05-27] MEDS ORDERED: WATER FOR INJ IVPB ONE ×3 (09:00→16:24)
[2021-05-27] MEDS ORDERED: Famotidine 20 MG/2 ML VIAL IVP SCH (09:00)
[2021-05-27] MEDS ORDERED: [UNRECOGNIZED DRUG - OTHER] IVPB ONE (09:15)
[2021-05-27] MEDS: Insulin LISPRO 300 UNITS/3 ML VIAL SUBQ SCH ×2 (09:16→15:10)
[2021-05-27] MEDS: carvediloL 6.25 MG TABLET PO SCH ×2 (09:16→15:31)
[2021-05-27] MEDS: 0.9 % Sodium Chloride 1,000 ML IVC SCH ×2 (09:20→09:21)
[2021-05-27] MEDS ORDERED: 0.9 % Sodium Chloride 250 ML ONE ×2 (09:40→19:01)
[2021-05-27] MEDS ORDERED: *HR* Norepinephrine 4 MG/4 ML VIAL IVC ONE (10:06)
[2021-05-27] MEDS ORDERED: *HR* Rocuronium Bromide 50 MG/5 ML VIAL ONE (10:06)
[2021-05-27] MEDS ORDERED: *HR* Succinylcholine 200 MG/10 ML VIAL IVP ONE (10:06)
[2021-05-27] MEDS ORDERED: *HR* Phenylephrine 10 MG/ML VIAL ONE (10:06)
[2021-05-27] MEDS ORDERED: Lidocaine -MPF 2% 5 ML VIAL ONE (10:06)
[2021-05-27] MEDS ORDERED: *HR* Etomidate 40 MG/20 ML VIAL IVP ONE (10:11)
[2021-05-27 10:12] LABS: BUN/Creatinine Ratio 24 (6-26); Blood Urea Nitrogen 32 mg/dL (8-23); Calcium 8.4 mg/dL (8.6-10.3); Carbon Dioxide 18 mEq/L (23-29); Chloride 106 mEq/L (98-107); Glucose 169 mg/dL (70-105); Magnesium 2.1 mg/dL (1.6-2.6); Osmolality,Calculated 293 (280-300); Potassium 4.3 mEq/L (3.5-5.1); Sodium 136 mEq/L (136-145); eGFR For African Americans > 60 (> 60); eGFR For Non-African Americans 52 (> 60)
[2021-05-27] MEDS ORDERED: *HR* FentaNYL (PF) 100 MCG/2 ML VIAL ONE (10:54)
[2021-05-27] MEDS ORDERED: *HR* Vasopressin 20 UNIT/ML VIAL ONE (11:27)
[2021-05-27] MEDS ORDERED: Albumin Human 5% 12.5 GM/250 ML IV.SOLN ONE (11:27)
[2021-05-27] MEDS ORDERED: Tranexamic Acid 1,000 MG/10 ML VIAL ONE (11:29)
[2021-05-27 12:49] LABS: Basophils % 0.1 %; Hematocrit 23.7 % (37.5-50.1); Hemoglobin 7.8 g/dL (12.9-16.9); Immature Granulocytes % 1.6 % (0-4); Lymphocytes # 1.2 K/mcL (0.6-4.6); Lymphocytes % 5.6 %; Mean Corpuscular HGB Conc 32.9 g/dL (31.6-35.5); Mean Corpuscular Volume 91.2 fL (83.0-100.0); Mean Platelet Volume 9.5 fL (9.4-12.4); Monocytes % 9.5 %; Neutrophils # 17.2 K/mcL (1.6-8.9); Nucleated Red Blood Cells 0.3 /100 WBC (0); Platelet Count 198 K/mcL (140-400); Red Cell Distribution Width 14.4 % (11.5-14.5); Segmented Neutrophils % 83.2 %; White Blood Count 20.7 K/mcL (4.3-11.1)
[2021-05-27 13:01] LABS: BUN/Creatinine Ratio 24 (6-26); Blood Urea Nitrogen 32 mg/dL (8-23); Calcium 6.6 mg/dL (8.6-10.3); Carbon Dioxide 17 mEq/L (23-29); Chloride 111 mEq/L (98-107); Glucose 196 mg/dL (70-105); Osmolality,Calculated 298 (280-300); Potassium 4.2 mEq/L (3.5-5.1); Sodium 138 mEq/L (136-145); eGFR For African Americans > 60 (> 60); eGFR For Non-African Americans 54 (> 60)
[2021-05-27 13:20] LABS: ABG Base Excess -9 mEq/L (-2 to 3); ABG Chloride 111 mEq/L (98-107); ABG Glucose 201 mg/dL (60-95); ABG HCO3 15 mEq/L (21-27); ABG Ionized Calcium 0.99 mmol/L (1.15-1.35); ABG Oxygen Saturation 98 % (95-98); ABG PCO2 26 mmHg (35-45); ABG PH 7.38 pH Units (7.32-7.45); ABG PO2 107 mmHg (85-104); ABG TCO2 16 mEq/L (20-26)
[2021-05-27] MEDS ORDERED: EPHEDrine 50 MG/ML VIAL ONE (13:25)
[2021-05-27] MEDS ORDERED: Phenylephrine 20 MG in 0.9 % Sodium Chloride 250 ML IVC SCH ×2 (14:45→16:24)
[2021-05-27 15:00] VITALS: TEMP 98.7
[2021-05-27] MEDS: Calcium Gluconate 1gm/50mL 1 GM/50 ML BAG IVPB SCH ×2 (15:24→15:45)
[2021-05-27] MEDS: Pantoprazole 40 MG in 0.9 % Sodium Chloride Mini Bag 100 ML IVC SCH ×2 (15:30→15:31)
[2021-05-27] MEDS ORDERED: Pantoprazole 40 MG in 0.9 % Sodium Chloride Mini Bag 100 ML IVC SCH (16:24)
[2021-05-27] MEDS ORDERED: Ondansetron ODT 4 MG TAB.RAPDIS SL PRN (16:24)
[2021-05-27] MEDS ORDERED: *HR* HYDROcodone/Acet 5/325 mg TABLET PO PRN (16:24)
[2021-05-27] MEDS ORDERED: Naloxone 0.4 MG/ML INJ IVP PRN (16:24)
[2021-05-27] MEDS ORDERED: SODIUM CHLORIDE/NAHCO3/KCL/PEG 4,000 ML SOLN.RECON PO ONE (16:24)
[2021-05-27] MEDS ORDERED: Melatonin 3 MG TABLET PO PRN (16:24)
[2021-05-27 16:26] LABS: Hematocrit 23.9 % (37.5-50.1); Hemoglobin 8.1 g/dL (12.9-16.9)
[2021-05-27] MEDS ORDERED: Insulin LISPRO 300 UNITS/3 ML VIAL SUBQ SCH (16:30)
[2021-05-27] MEDS ORDERED: 0.9 % Sodium Chloride 1,000 ML ONE (16:45)
[2021-05-27] MEDS: Albumin Human 5% 12.5 GM/250 ML IV.SOLN IVC SCH ×2 (16:50→17:01)
[2021-05-27] MEDS ORDERED: 0.9 % Sodium Chloride 1,000 ML IV ONE (16:50)
[2021-05-27] MEDS ORDERED: carvediloL 6.25 MG TABLET PO SCH (17:00)
[2021-05-27 18:07] VITALS: BP 109/55; PULSE 102
[2021-05-27 20:20] VITALS: O2SAT 88
[2021-05-28] MEDS ORDERED: *HR* Amiodarone 200 MG TABLET PO SCH (09:00)
== END 2021-05-27 21:51 | disposition expired | DRG 871 ==
LOC: 3ANU → SUATTDRO 19:55 → ICNU 05-27 11:57
PROVIDERS: ADMIT Internal Medicine; ATTEND Internal Medicine